=== PATIENT | male | born 1970 | race African-American/Black ===

== ENCOUNTER 2016-11-30 21:27 | Inpatient (IN) | payer OTHER ==
--- NOTE | ~2016-11-30 | CR4 ---
[facility] A Service of [facility] RADIOLOGY TEXT RESULTS PATIENT: MARIELA LANCE LOCATION: [facility] 341- : [birth year] UNIT #: [id number] AGE: [address]: Christofer Gambino MD SEX: M ORDER DR: [id number] [id number] [facility]. [place], [place] [address] [id number] I MR#: [id number] Acc #: [id number] NAME: MARIELA LANCE : 1970 SEX: M STUDY DATE/TIME: 12/04/2016 19:02 UNIT: [address] ROOM: [facility] STUDY DESCRIPTION: CR Abdomen Flat Upright or Dec Attending Physician: Christofer Gambino M.D. Ordering Physician: Damian Enriquez M.D. Primary Care Physician: No Primary Care Physician MEDICAL IMAGING REPORT This report is preliminary unless electronic signature is present EXAM Abdomen flat and upright HISTORY Nausea, vomiting for days. FINDINGS Flat upright views of the abdomen demonstrate moderate dilatation of gas and fluid filled small bowel in the mid to upper abdomen with air-fluid levels on the upright view. No colonic dilatation. There is gas in nondistended colon and rectum. No free air. Small bowel measures up to 4.6 cm in diameter in the upper abdomen. NG tube tip in the proximal stomach in the left upper quadrant. IMPRESSION Gaseous distension of small bowel in the mid upper abdomen measuring up to 4.6 cm in diameter with air-fluid levels suggesting partial small bowel obstruction versus small bowel ileus. Short-term radiographic follow up is recommended. No free air. Dictated by... Devyn Torres M.D. THIS IS AN ELECTRONICALLY VERIFIED REPORT Devyn Torres M.D. at 12/05/2016 5:14 PM ACE/rupert TD: 12/05/2016 01:07 JOB #: [id number] [facility] A Service [facility] RADIOLOGY TEXT RESULTS PATIENT: MARIELA LANCE LOCATION: [facility] 341-01 : [birth year] UNIT #: [id number] AGE: [address]: Christofer Gambino MD SEX: M ORDER DR: MEDICAL IMAGING REPORT Page 1 of 1 COPY
--- NOTE | ~2016-11-30 | XA166 ---
[facility] A Service of [facility] & [facility] RADIOLOGY TEXT RESULTS PATIENT: MARIELA LANCE LOCATION: [facility] 341-01 : [birth year] UNIT #: [id number] AGE: [address]: Christofer Gambino MD SEX: M ORDER DR: [id number] [id number] [facility]. [place], [place] [address] [id number] I MR#: [id number] Acc #: [id number] NAME: MARIELA LANCE. : 1970 SEX: M STUDY DATE/TIME: 12/05/2016 10:11 UNIT: C3A [facility] ROOM: 341 STUDY DESCRIPTION: XA PICC Line Placement WO Port Attending Physician: Christofer Gambino M.D. Ordering Physician: Sindhu Contreras M.D. Primary Care Physician: No Primary Care Physician MEDICAL IMAGING REPORT This report is preliminary unless electronic signature is present EXAM Right-sided PICC line placement. INDICATION Need for IV access in a patient with a history of pancreatitis and requires access for TPN. 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 Informed consent was obtained, and prior to initiating the procedure a formal timeout procedure was performed. PROCEDURE Using full standard sterile barrier technique, including caps, gowns, gloves, masks, as well as sterile skin preparation and standard sterile draping, the right arm was prepped and draped in the usual fashion, and real-time sterile ultrasound guidance was used to localize an arm vein and to confirm vessel patency. A hard copy ultrasound image was recorded. After local anesthesia with 1% Xylocaine, the vein was punctured using real-time sterile ultrasound guidance, and an 0.018 guidewire was advanced into the superior vena cava, using fluoroscopic guidance. A 5-Cuban dual-lumen PICC was then measured and deployed with the tip positioned in the superior vena cava. The position of the line was documented with a radiographic image. The line was secured in place with an adhesive dressing and an antibiotic patch was applied. Total fluoro time was 0.1 minutes. AK was 1 mGy. IMPRESSION Successful placement of a 5-Cuban dual-lumen PowerPICC via the arm under ultrasound and fluoroscopic guidance. The tip of the PICC is in good position in the superior vena cava. [facility] A Service of [facility] & [facility] RADIOLOGY TEXT RESULTS PATIENT: MARIELA LANCE LOCATION: [facility] 341-01 : [birth year] UNIT #: [id number] AGE: [address]: Christofer Gambino MD SEX: M ORDER DR: Dictated by... Jolly William M.D. THIS IS AN ELECTRONICALLY VERIFIED REPORT Jolly William M.D. at 12/06/2016 5:21 PM AFF/hussein TD: 12/06/2016 09:19 JOB #: [id number] MEDICAL IMAGING REPORT Page 1 of 1 COPY
--- NOTE | ~2016-11-30 | CT4 ---
[facility] A Service of [facility] & [facility] RADIOLOGY TEXT RESULTS PATIENT: MARIELA LANCE LOCATION: [facility] 341- : [birth year] UNIT #: [id number] AGE: [address]: Christofer Gambino MD SEX: M ORDER DR: [id number] [facility] [address] [facility]. [place], [place] [address] [id number] I MR#: [id number] Acc #: [id number] NAME: MARIELA LANCE. : 1970 SEX: M STUDY DATE/TIME: 12/06/2016 12:16 UNIT: [address] ROOM: 341 STUDY DESCRIPTION: CT Abd and Pelv Wo Cont Attending Physician: Christofer Gambino M.D. Ordering Physician: Christofer Gambino M.D. Primary Care Physician: No Primary Care Physician MEDICAL IMAGING REPORT This report is preliminary unless electronic signature is present EXAM CT of the abdomen and pelvis without contrast. INDICATION Abdominal pain. Patient has a history of pancreatitis. He was diagnosed with this on December 01, 2016. TECHNIQUE Axial CT images were obtained from the dome of the diaphragm through the symphysis pubis following the administration of oral contrast only. This CT exam was performed with one or more of the following radiation dose reduction techniques: automatic exposure control, adjustment of mA and/or kV according to patient size, and iterative reconstruction. FINDINGS Images through the lung bases demonstrate some bibasilar atelectasis, left greater than right. This has worsened slightly when compared to the prior examination. Nasogastric tube extends into the body of the stomach. Liver contains a low-attenuation lesion which may reflect a cyst. There is a small amount of ascites within the abdomen, and also within the pelvis. The patient's pancreas is enlarged with extensive peripancreatic stranding. The degree of stranding has worsened when compared to the prior CT. There is peripancreatic edema without discrete organized collection noted. The presence or absence of pancreatic necrosis cannot be assessed on the basis of this study due to the lack of intravenous contrast material. Patient's second portion of the duodenum is very thick-walled. Likely secondary to adjacent inflammation within the pancreas, however, process is not resulting in obstruction. Some additional stranding is seen around the left adrenal gland again felt to represent some secondary involvement. The right kidney appears normal. Patient has a left renal cyst. The urinary bladder and prostate gland are within normal limits. There is small bilateral fat containing inguinal hernias. Patient does have colonic diverticulosis without any evidence of STS. [facility] A Service of [facility] RADIOLOGY TEXT RESULTS PATIENT: MARIELA LANCE LOCATION: [facility] 341-01 : [birth year] UNIT #: [id number] AGE: [address]: Christofer Gambino MD SEX: M ORDER DR: diverticulitis. There are dilated loops of small bowel which are seen within the left upper quadrant and I wonder if this could reflect some localized ileus related to the patient's pancreatitis. The appendix is visualized and is within normal limits. Review of bony windows does not demonstrate any aggressive osseous abnormalities. IMPRESSION 1. Enlargement of the pancreas as well as extensive peripancreatic soft tissue stranding has significantly worsened when compared to the prior study. There is also increasing fluid suspected around the pancreas, although, no discrete organized peripancreatic collections are identified. The presence or absence of pancreatic necrosis cannot be assessed on the basis of this unenhanced study. There is secondary involvement of the duodenum and probably also the left adrenal gland. While the patient does not appear frankly obstructed, I do think there is a localized ileus involving the proximal small bowel, secondary to the patient's pancreatitis. 2. This patient does have a small amount of ascites. 3. The appendix is visualized and is within normal limits. 4. Colonic diverticulosis without evidence of diverticulitis. Please see the body of the report for any other additional incidental findings. Dictated by... Jolly William M.D. THIS IS AN ELECTRONICALLY VERIFIED REPORT Jolly William M.D. at 12/06/2016 5:23 PM AFF/wayne TD: 12/06/2016 15:25 JOB #: [id number] MEDICAL IMAGING REPORT Page 1 of 1 COPY
--- NOTE | ~2016-11-30 | FU ---
[facility] Nutrition Therapy DATE: 12/11/16 Patient: MARIELA LANCE Physician: DAYANA Address: [address] [place] [address] Room/Bed: [address] [place] [address], Zip: [place] [address] Admit Date: 12/01/16 Date of : [birth year] Height: 5 8 Weight: 168 76.6 NUTRITION MONITORING/FOLLOW-UP: Reason: TPN f/u Anthropometrics: Wt 12/11: 76.6 kg Labs: Na+ 131 Cl- 98 Gluc 223 BUN 7 Ca++ 7.9 Alb 2.2 AST 77 ALT 59 CRP 16.7 Meds: TPN @ 75 mL/hr, intralipids q 72 hrs, therapeutic formula, novlog, protonix, zofran, MgSO4, KCl I&O's: 1545/2735, last BM 12/10, NG to LWS Skin: Puncture to procedure site left knee Edema: Generalized left knee Estimated Nutrition Needs: 3286-5046 kcals (30-35 kcals/kg) 90-113 grams protein (1.2-1.5 grams/kg) Diet: NPO except ice chips Assessment: Chart reviewed, events noted. Today is day 7 of TPN, which was increased to 75 mL/hr today (goal 85 mL/hr). It appears that the pt was placed on a clear liquid diet for one day on 12/08, then ordered to be NPO again on 12/09. Ileus noted, and the pt's NG is to LWS at this time per RN report. Blood glucose levels remain elevated. RD will provide diet education when the pt's diet advances. Please see recommendations below. Dx: Inadequate protein-energy intake RT pancreatitis, ileus AEB NPO status, -# weight loss- ACTIVE Intervention: 1. TPN 2. Advance to clear liquid diet once medically feasible Monitoring, Evaluation and Goals: 1. TPN; provide at least 80% of the pt's estimated needs- MET/ IN PROGRESS 2. Improve labs; glucose- not met, electrolytes (MET), trig (NOT UPDATED), amylase (NOT UPDATED), Lipase (NOT UPDATED) 3. Oral intake- NOT APPROPRIATE, PT IS NOW NPO 4. GI; promote regular GI function (NOT MET) [facility] DATE: 12/11/16 Patient: MARIELA LANCE Physician: DAYANA Address: [address] [place] [address] Room/Bed: [address] [place] [address], Zip: [place] [address] Admit Date: 12/01/16 Date of : [birth year] Height: 5 8 Weight: 168 76.6 5. Weight; prevent weight loss (IN PROGRESS, +1.8 KG SINCE LAST ASSESSMENT) Recommendations: 1. Increase TPN to goal of 85 mL/hr as deemed appropriate per pharmacy dosing. 2. Optimize the pt's insulin regimen noting elevated blood glucose levels. 3. Once the pt's ileus is resolved, recommend advancing to a clear liquid diet + Ensure Clear TID as tolerated. If the pt is able to tolerate clear liquids, advance to a low fat/full liquid diet as tolerated. RD will follow up to order appropriate supplements. 4. If the pt is continually unable to take nutrition PO, consider obtaining short-term enteral access and attempting enteral nutritition with Vital 1.5. RD will follow up to monitor appropriateness of enteral nutrition. Status: Pt is at moderate-severe nutritional risk. RD will continue to follow closely. Respectfully, TAMIKA MARIN RD, LD Food and Nutritional Services [facility] cc: client file
--- NOTE | ~2016-11-30 | OR ---
Unit #: [id number] #: [id number] Patient: MARIELA VILLASENOR [id number] [address] [address] [id number] I MR#: [id number] NAME: MARIELA VILLASENOR. ROOM: 341 Date of Procedure: 12/07/2016 Admission Date: 12/01/2016 Surgeon: Osiel Crowley M.D. : 1970 Attending Physician: Christofer Gambino M.D. Primary Care Physician: Yanet Primary Care Physician PROCEDURE OPERATIVE NOTE PREOPERATIVE DIAGNOSIS Gross hematuria. POSTOPERATIVE DIAGNOSIS Gross hematuria. PROCEDURES PERFORMED Local cystoscopy. ANESTHESIA Local. INDICATION FOR PROCEDURE Ms. Villasenor is a pleasant 46-year-old gentleman with gross hematuria. This has resolved. CT revealed negative upper tracks. The risks, benefits and alternatives, including bleeding, infection, damage to adjacent structures, need for further surgery, as well as risks of anesthesia, were explained to the patient. Informed consent was obtained. He wished to proceed. DESCRIPTION OF PROCEDURE The patient was placed in the supine position. His genitalia were prepped and draped in the usual sterile fashion. A Uro-jet was passed. I passed a flexible cystoscope. His entire urethra was normal. His prostate exhibited mild bilobar hyperplasia, and the bladder had no tumors, stones or masses. I removed the cystoscope. I allowed the patient to void. The patient tolerated the procedure well without complications. Dictated by... Marques Ward/shefali TD: 12/07/2016 11:17 JOB #: [id number] Unit #: [id number] #: [id number] Patient: MARIELA VILLASENOR PROCEDURE OPERATIVE NOTE Page 1 of 1 X Osiel Crowley MD X PROCEDURE OPERATIVE NOTE
--- NOTE | ~2016-11-30 | FU ---
[facility] Nutrition Therapy DATE: 12/08/16 Patient: MARIELA LANCE Physician: DAYANA Address: [address] [place] [address] Room/Bed: [address] [place] [address], Zip: [place] [address] Admit Date: 12/01/16 Date of : [birth year] Height: 5 8 Weight: 164 74.8 NUTRITION MONITORING/FOLLOW-UP: Reason: TPN FOLLOW UP Anthropometrics: Ht: 68" Adm wt: 75.2 kg BMI: 25.2 Wt 12/08: 74.8 kg Labs: Na+ 133 Gluc 270 BUN 7 Creat 0.5 Ca++ 7.6 Alb 2.2 AST 47 Phos 2.2 Accuchecks 272 Meds: TPN @ 70 mL/hr, therapeutic formula, novolog, protonix, D5%, MgSO4, KCl, zofran I&O's: 1762/3051, last BM 12/08, NGT d/c'd Skin: No breakdown noted Edema: None noted Estimated Nutrition Needs: 9809-2445 kcals (30-35 kcals/ kg) 90-113 grams protein (1.2-1.5 grams/kg) Assessment: Chart reviewed, events noted. NG tube has been discontinued, and the pt had a BM (noted yesterday and today). TPN running at 70 mL/hr, to increase to goal rate when electrolytes and glucose levels improve per pharmacy note. Pt is currently ordered a regular diet and received breakfast this AM; however, there is no written MD order for diet that RD could locate. RN reports that MD verbalized diet advancement last night, and that the pt did not consume any of his breakfast (even though he did receive a tray). RD suggested the pt is started on clear liquids, and advanced to low fat diet as tolerated due to pancreatitis. RN called MD to clarify this. RD spoke with the pt at bedside. Pt denies having any abdominal pain at this time. His abdomen does appear to be distended per RD observation. Pt is agreeable to Ensure clear TID once diet is clarified. Pt has a fair appetite. Please see recommendations below. Dx: Inadequate protein-energy intake RT pancreatitis AEB NPO, 10-15# weight loss reported by the pt- ACTIVE Intervention: 1. TPN 2. Advance to clear liquid diet [facility] Nutrition Therapy DATE: 12/08/16 Patient: MARIELA Springer NATLAIO Physician: DAYANA Address: [address] [place] [address] Room/Bed: [address] [place] [address], Zip: [place] [address] Admit Date: 12/01/16 Date of : [birth year] Height: 5 8 Weight: 164 74.8 Monitoring, Evaluation and Goals: 1. TPN; provide at least 80% of the pt's estimated needs- (IN PROGRESS) 2. Improve labs; Glucose-NOT MET, electrolytes (NOT MET), triglycerides (NOT UPDATED), amylase (NOT UPDATED), lipase (NOT UPDATED) 3. Oral intake; clarify diet, tolerate 50% of meals if diet ordered by MD-(NEW) 4. GI; promote regular GI function (IN PROGRESS- BM NOTED) 5. Weight; prevent weight loss- (NOT MET) Recommendations: 1. Continue TPN, increasing to goal rate of 85 mL/hr as deemed appropriate based on pharmacy orders (monitoring labs, glucose). Once the pt is consuming greater than 50% of meals, gradually wean and discontinue TPN. 2. Recommend advancing the pt to a clear liquid diet to begin with. If the pt tolerates clear liquids, advance to full liquid diet. If the pt is able to tolerate full liquids, advance to a low fat diet (d/t pancreatitis). RD will order supplements as appropriate. 3. Ensure clear TID once advanced to a clear liquid diet. Status: Pt is at moderate-severe nutritional risk. RD will continue to follow closely. Respectfully, TAMIKA MARIN RD, LD Food and Nutritional Services [facility] cc: client file
--- NOTE | ~2016-11-30 | CT2 ---
[facility] A Service of [facility] RADIOLOGY TEXT RESULTS PATIENT: MARIELA LANCE LOCATION: [facility] 341-01 : [birth year] UNIT #: [id number] AGE: [address]: Christofer Gambino MD SEX: M ORDER DR: [id number] [facility] [address] [facility]. [place], [place] [address] [id number] I MR#: [id number] Acc #: [id number] NAME: MARIELA LANCE. : 1970 SEX: M STUDY DATE/TIME: 12/01/2016 0:02 UNIT: CEDOF ROOM: 02472 STUDY DESCRIPTION: CT Abd and Pelv W Cont Attending Physician: Sindhu Contreras M.D. Ordering Physician: Pa Hagan M.D. Primary Care Physician: Primary Care Physician No MEDICAL IMAGING REPORT This report is preliminary unless electronic signature is present EXAM CT abdomen and pelvis with contrast date: 12/01/2016 HISTORY Abdominal pain with vomiting, onset symptoms of 1700 today. COMPARISON Abdominal ultrasound 10/31/2010. No previous CT abdomen and pelvis at this and diffusion for comparison. PROCEDURE 5 mm axial images from the lung bases through lesser trochanters after intravenous contrast administration. Sagittal and coronal reformatted images were obtained. Enteric contrast was not administered. This CT exam was performed with one or more of the following radiation dose reduction techniques: automatic exposure control, adjustment of mA and/or kV according to patient size, and iterative reconstruction. FINDINGS Abdomen findings: There is abnormal thickening and diminished enhancement or edema involving the pancreatic head, neck, downstream body and uncinate process, thought to represent changes of acute pancreatitis. Free fluid is seen surrounding the liver, extending along the anterior pararenal fascial planes, and in the right pericolic gutter into the pelvis. No well-defined drainable fluid collection or pseudocyst is seen. There is some mild thickening and enhancement of the second and third duodenal segments, likely representing a reactive secondary duodenitis. Geographic region of low-density in hepatic dome measures 2.1 x 1.2 cm. It is nonspecific may represent focal area of geographic hepatic steatosis. Benign appearing 1.2 cm cyst is seen more inferolaterally in STS. [facility] A Service of [facility] RADIOLOGY TEXT RESULTS PATIENT: MARIELA LANCE LOCATION: A 341-01 : [birth year] UNIT #: [id number] AGE: [address]: Christofer Gambino MD SEX: M ORDER DR: the right hepatic lobe. The gallbladder, spleen, adrenals and right kidney are normal. A cyst is seen within left upper renal pole measuring 2.6 cm. Mild emphysematous changes are present within the lung bases. There is some incomplete opacification within the splenic vein immediately adjacent to the pancreas, may represent partial incomplete luminal thrombus. The appendix is normal. Pelvis findings: Urinary bladder, prostate and rectum are within normal limits. No acute osseous abnormalities are identified. IMPRESSION 1. Findings most consistent with the appearance of acute pancreatitis involving the pancreatic head, neck, and downstream body. 2. There is irregular incomplete opacification of the splenic vein immediately adjacent to the inflamed pancreas suggesting partial and complete splenic vein thrombus. 3. Free fluid is seen within the abdomen as described above. No well-defined pseudocyst or drainable fluid collection is seen at this time. 4. Suspected secondary reactive duodenitis changes of the second and third duodenal segments. 5. 2.1 cm geographic region of low-density hepatic dome. Benign etiology such as focal steatosis is favored. Consider MRI abdomen without and with contrast hepatic imaging protocol followup to further evaluate. Alternatively, correlation with previous outside CT abdomen imaging studies would be recommended if available to determine stability. 6. Mild emphysema. 7. Hepatic cyst. Left renal cyst. Dictated by... Vianca Hays M.D. THIS IS AN ELECTRONICALLY VERIFIED REPORT Vianca Hays M.D. at 12/06/2016 4:11 PM Sofi TD: 12/01/2016 07:07 JOB #: [id number] MEDICAL IMAGING REPORT Page 1 of 1 COPY
--- NOTE | ~2016-11-30 | TOC ---
Unit #: [id number] #: [id number] Patient: MARIELA LANCE [id number] [address] [place], [place] [address] [id number] I MR#: [id number] NAME: MARIELA LANCE. ROOM: 341 Age: 46 Sex: M Admission Date: 12/01/2016 : 1970 Attending Physician: Christofer Gambino M.D. Primary Care Physician: Yanet Primary Care Physician TRANSFER OF CARE SUMMARY ADMITTING DIAGNOSES 1. Pancreatitis. 2. Small bowel obstruction. 3. Ileus. 4. Low-grade fevers. 5. Possible septic arthritis of the left knee. 6. Hematuria. CONSULTANTS 1. Dr. Damian Enriquez. 2. Dr. Salinas. PROCEDURES DONE 1. EGD. 2. Cystoscopy. HISTORY OF PRESENT ILLNESS The patient is a 46-year-old gentleman with a past medical history of hypertension, history of previous stroke, alcohol abuse. Was admitted with abdominal pain on the with concern for acute pancreatitis. In the hospital course he was kept NPO, started on IV fluids, TPN. He had an EGD, which showed normal esophagus, hiatal hernia and esophageal ring. No fundic varices. About 1.5 liters of fluid were aspirated from the patient's stomach and small bowel. For possible ileus, and NG tube was placed. Subsequently, his abdominal distention has improve. He was started on Unasyn (1) . He is still spiking low-grade fevers. Today he is complaining of left knee pain where he had surgery at [facility] a year ago for knee surgery. We are trying to get records from [facility] about the knee surgery. For a consent for septic arthritis, we are consulting orthopedic surgery to evaluate him. We are also starting him on vancomycin and Rocephin and stopping Unasyn. For hematuria, he was evaluated by urology. He had a cystoscopy, which showed benign prostatic hypertrophy. No masses. He is clinically doing better. After ortho evaluation, probably in a day or day or two, he may be discharged home. Kindly note a final discharge summary will be dictated by me or my colleagues at the time of actual discharge. Dictated by... Christofer Gambino M.D. PS/db Unit #: [id number] #: [id number] Patient: GEGE LANCEALEJANDRO Springer TD: 12/11/2016 09:10 JOB #: [id number] TRANSFER OF CARE SUMMARY Page 1 of 1 X X TRANSFER OF CARE SUMMARY
--- NOTE | ~2016-11-30 | US67 ---
[facility] A Service of [facility] RADIOLOGY TEXT RESULTS PATIENT: MARIELA LANCE LOCATION: [facility] : [birth year] UNIT #: [id number] AGE: [address]: Christofer Gambino MD SEX: M ORDER DR: [id number] [place] [id number] [facility]. [place], [place] [address] [id number] I MR#: [id number] Acc #: [id number] NAME: MARIELA LANCE. : 1970 SEX: M STUDY DATE/TIME: 12/11/2016 16:17 UNIT: [address] ROOM: [facility] STUDY DESCRIPTION: US Gallbladder Attending Physician: Christofer Gambino M.D. Ordering Physician: Adarsh Dubois M.D. MEDICAL IMAGING REPORT This report is preliminary unless electronic signature is present EXAM Gallbladder ultrasound HISTORY Pain. This has been present since November 30, 2016. Patient has a known history of pancreatitis. TECHNIQUE Sanchez-scale and color Doppler sonographic images were obtained through the right upper quadrant. FINDINGS Pancreas cannot be assessed on these images due to overlying bowel gas but was recently assessed on a CT scan performed this morning. Liver is enlarged measuring up to 17 cm in craniocaudal dimensions but is relatively homogeneous in echotexture. No focal hepatic lesions are seen. Right kidney is normal in appearance. No solid or cystic renal masses are seen. There is no hydronephrosis. No stones or sludge are seen within the gallbladder. There is no gallbladder wall thickening or pericholecystic fluid. IMPRESSION 1. Hepatomegaly. 2. Please note, pancreas cannot be seen on these images due to overlying bowel gas but was assessed on a CT scan performed earlier today. Dictated by... Jolly William M.D. THIS IS AN ELECTRONICALLY VERIFIED REPORT [facility] A Service of [facility] RADIOLOGY TEXT RESULTS PATIENT: MARIELA LANCE LOCATION: [facility] : [birth year] UNIT #: [id number] AGE: [address]: Christofer Gambino MD SEX: M ORDER DR: Jolly William M.D. at 12/12/2016 4:46 PM AFF/pcl TD: 12/11/2016 22:10 JOB #: [id number] MEDICAL IMAGING REPORT Page 1 of 1 COPY
--- NOTE | ~2016-11-30 | CR4 ---
[facility] A Service of [facility] & [facility] RADIOLOGY TEXT RESULTS PATIENT: MARIELA LANCE LOCATION: [facility] 341- : [birth year] UNIT #: [id number] AGE: [address]: Christofer Gambino MD SEX: M ORDER DR: [id number] [facility] [address] [facility]. [place], [place] [address] [id number] I MR#: [id number] Acc #: [id number] NAME: MARIELA LANCE : 1970 SEX: M STUDY DATE/TIME: 12/09/2016 11:54 UNIT: [address] ROOM: [facility] STUDY DESCRIPTION: CR Abdomen Flat Upright or Dec Attending Physician: Christofer Gambino M.D. Ordering Physician: Kenneth Hawk M.D. Primary Care Physician: No Primary Care Physician MEDICAL IMAGING REPORT This report is preliminary unless electronic signature is present EXAM Flat and upright abdomen. INDICATIONS Abdominal pain and bloating. Increasing. COMPARISON Comparison with 12/04/2016. FINDINGS There are dilated gas-filled loops of small bowel which compared with the prior study have increased within the mid and lower abdomen. Gas within the stomach. Overall findings suggest worsening of small bowel obstruction. A PICC line remains in place. IMPRESSION Increased gas-filled dilated loops of small bowel suggesting worsening small bowel obstruction. Dictated by... Kali Yun M.D. THIS IS AN ELECTRONICALLY VERIFIED REPORT Kali Yun M.D. at 12/10/2016 3:48 PM KHURRAM/wayne TD: 12/09/2016 23:04 JOB #: [id number] MEDICAL IMAGING REPORT Page 1 of 1 COPY
--- NOTE | ~2016-11-30 | OR ---
Unit #: [id number] #: [id number] Patient: MARIELA VILLASENOR [id number] [address] [place], [place] [address] [id number] I MR#: [id number] NAME: MARIELA VILLASENOR. ROOM: [facility] Date of Procedure: 12/10/2016 Admission Date: 12/01/2016 Surgeon: Carlos Alberto Burger M.D. : 1970 Attending Physician: Christofer Gambino M.D. Primary Care Physician: Primary Care Physician No OPERATIVE REPORT PREOPERATIVE DIAGNOSIS Left septic knee arthritis. POSTOPERATIVE DIAGNOSIS Left septic knee arthritis. PROCEDURE PERFORMED Left knee arthrotomy with incision and drainage. 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 ANESTHESIA General endotracheal. COMPLICATIONS None. SPECIMENS Culture swabs sent from the left knee. DRAINS Medium Hemovac. SURGICAL IMPLANTS None. INDICATION FOR PROCEDURE Mr. Villasenor is a 46-year-old male with history of left septic knee arthritis. The patient developed large left knee effusion and elevated white count along with low-grade fevers over the past 2 days. He had been admitted for acute pancreatitis. Aspiration knee performed. Gram stain was negative, but the patient was on antibiotics. 99% neutrophils. Based on these findings, it was felt irrigating the knee would help. Risks, benefits, alternatives were discussed with the patient. Risks include, but not limited to infection, bleeding, nerve injury, blood clots, risks associated with anesthesia, need for further surgery, and possibly . DESCRIPTION OF PROCEDURE On 12/10/2016, the patient was seen in the preoperative holding area, where his surgical site was marked. H and P and consent updated. The patient was on scheduled antibiotics. The patient was taken to the Unit #: [id number] #: [id number] Patient: MARIELA VILLASENOR operating room and provided general anesthesia. The left lower extremity was prepped and draped in typical sterile fashion. Time-out performed confirming the correct surgical site and procedure. Next, a longitudinal incision was made through the old scar right along the medial patella. A medial parapatellar arthrotomy performed. Large fusion noted. Purulent fluid noted. Culture swabs were sent. The knee was thoroughly irrigated with 3000 mL of normal saline containing bacitracin. A medium Hemovac drain was placed at the superolateral aspect of the thigh. Deep tissue closed with 0 Vicryl followed by 2-0 Vicryl for subcutaneous tissues and deepthi for skin. Xeroform, 4x4s, ABD pad, cast padding, and Campbell bandage were placed. The patient was subsequently awakened from general anesthesia in stable condition and taken to the PACU postoperatively. POSTOPERATIVE PLAN The patient will return to his hospital room. He will continue his antibiotics. We will check cultures. No complications encountered during this procedure. Dictated by... Carlos Alberto Burger M.D. MEAGHAN/rosanne TD: 12/10/2016 09:30 JOB #: [id number] OPERATIVE REPORT Page 1 of 1 X X PROCEDURE OPERATIVE NOTE
--- NOTE | ~2016-11-30 | OR ---
Unit #: [id number] #: [id number] Patient: MARIELA LANCE [id number] [address] [place], [place] [address] [id number] I MR#: [id number] NAME: MARIELA LANCE. ROOM: [facility] Date of Procedure: 12/04/2016 Admission Date: 12/01/2016 Surgeon: Damian Enriquez M.D. : 1970 Attending Physician: Christofer Gambino M.D. OPERATIVE REPORT PROCEDURE Esophagogastroduodenoscopy to descending duodenum. INDICATIONS FOR PROCEDURE The patient with recurrent hematemesis, history of acute pancreatitis, being treated. MEDICATIONS Monitored anesthesia. POSTOPERATIVE FINDINGS 1. Normal esophagus, but for hiatal hernia and esophageal ring. No varices were seen. 2. No fundic varices. 3. Gastric mucosa appears normal. No ulcer disease was seen. 4. Normal duodenum and distal duodenum. 5. Over 1.5 L of green fluid was aspirated out of the patient's stomach and small bowel. It suggests that he had significant ileus going on. PLAN NG tube to low wall suction, KUB, watch H and H. continue current treatment otherwise. DESCRIPTION OF PROCEDURE The patient was explained of the procedure, risks, and benefits along with risks and benefits of anesthesia, was brought to the endoscopy room. Propofol anesthesia was given. Bite block was placed. The scope was passed down the mouth into esophagus, stomach, duodenum, and distal duodenum. Findings have been described above. Gently, the scope was pulled out. He tolerated it well. No major complications were seen. Dictated by... Marques Rock/rosanne TD: 12/05/2016 05:23 JOB #: [id number] Unit #: [id number] #: [id number] Patient: MARIELA LANCE OPERATIVE REPORT Page 1 of 1 X Damian Enriquez MD PROCEDURE OPERATIVE NOTE
--- NOTE | ~2016-11-30 | CT2 ---
[facility] A Service of [facility] & [facility] RADIOLOGY TEXT RESULTS PATIENT: MARIELA LANCE LOCATION: [facility] 341-01 : [birth year] UNIT #: [id number] AGE: [address]: Christofer Gambino MD SEX: M ORDER DR: [id number] [facility] [address] [place], [place] [address] [id number] I MR#: [id number] Acc #: [id number] NAME: MARIELA LANCE. : 1970 SEX: M STUDY DATE/TIME: 12/11/2016 01:17 UNIT: A U ROOM: 341 STUDY DESCRIPTION: CT Abd and Pelv W Cont Attending Physician: Christofer Gambino M.D. Ordering Physician: Christofer Gambino M.D. Primary Care Physician: Primary Care Physician No MEDICAL IMAGING REPORT This report is preliminary unless electronic signature is present EXAM CT abdomen and pelvis 12/11/2016 01:17 INDICATION Mid abdominal pain since 11/30/2016. Pancreatitis. Small bowel obstruction for 3 days. TECHNIQUE Axial images were obtained through the abdomen and pelvis following IV contrast administration. Multiplanar reformats were obtained. Comparison made with 12/06/2016. This CT examination was performed with one or more of the following radiation dose reduction techniques: automatic exposure control, adjustment of mA and/or kV according to patient size, and iterative reconstruction. FINDINGS ABDOMEN: Minimal atelectasis noted in the lung bases. Cyst in the posterior right hepatic lobe is unchanged. Left renal cyst also unchanged. Both kidneys remain nonobstructed. Again seen are changes of acute pancreatitis with peripancreatic fluid extending out into the abdomen. There is no enhancement of the proximal to mid pancreatic body as well as a portion of the pancreatic head. These areas previously showed decreased enhancement on 12/01/2016 and this is presumably secondary to necrosis. No loculated drainable fluid collections are seen. The gallbladder is within normal limits. There is some thickening of the second portion of the duodenum which is probably some reactive inflammation. NG tube is decompressing the stomach. There are some dilated small bowel loops predominantly on the left side of the abdomen which are probably not appreciably changed from a prior study and likely reflect an ileus. Colon is relatively decompressed. The degree of fluid and stranding around the pancreas has progressively worsened. PELVIS: There is sigmoid diverticulosis without evidence of STS. [facility] A Service of [facility] RADIOLOGY TEXT RESULTS PATIENT: MARIELA LANCE LOCATION: [facility] 341-01 : [birth year] UNIT #: [id number] AGE: [address]: Christofer Gambino MD SEX: M ORDER DR: diverticulitis. The appendix remains normal. Urinary bladder is within normal limits. No significant free fluid in the pelvis. IMPRESSION 1. Progressive inflammatory stranding in the lesser sac around the pancreas compatible with the patient's known pancreatitis. 2. Non-enhancement of the proximal to mid pancreatic body as well as portions of the pancreatic head compatible with pancreatic necrosis. The tail and uncinate process do appear to be enhancing normally. 3. No loculated or organized fluid collections are seen at this time in the abdomen or pelvis. 4. There are some dilated small bowel loops relatively stable from prior which probably reflect a generalized ileus. 5. Presumed secondary inflammatory changes involving the second portion of the duodenum. 6. Normal appendix. Dictated by... Beck Giron Jr., M.D. THIS IS AN ELECTRONICALLY VERIFIED REPORT Beck Giron Jr., M.D. at 12/11/2016 5:19 PM JANAE/benito TD: 12/11/2016 10:40 JOB #: [id number] MEDICAL IMAGING REPORT Page 1 of 1 COPY
--- NOTE | ~2016-11-30 | HP ---
Unit #: [id number] #: [id number] Patient: MARIELA LANCE [id number] [address] [place], [place] [address] [id number] I MR#: [id number] NAME: MARIELA LANCE. ROOM: 33648 Age: 46 Sex: M Admission Date: 12/01/2016 : 1970 Attending Physician: Sindhu Contreras M.D. Primary Care Physician: No Primary Care Physician HISTORY AND PHYSICAL SEE ADDENDUM CHIEF COMPLAINT Acute pancreatitis. HISTORY This pleasant, 46-year-old male with hypertension, previous CVA, and previous history of alcohol abuse is admitted for acute pancreatitis. At lunch yesterday, the patient developed fairly severe generalized abdominal pain with nonbloody nausea and vomiting after eating a sandwich and drinking Vicente's hard lemonade. He presented to this emergency department late last evening with labs and CT scan most consistent with acute pancreatitis. He was also noted to have a partial to complete splenic vein thrombosis near the pancreatitis and a focal abnormality of the liver, which could be secondary to focal steatosis versus other. Suspected secondary changes of duodenitis are also noted near the pancreas. In the ER, he was bolused with 2 liters of saline and given morphine, Zofran, Dilaudid, and Protonix. He still is in considerable pain and I have asked that further Dilaudid be given. Patient denies previous history of pancreatitis. He previously drank heavily, but now only drinks on the weekends and during ballgames, generally Vicente's hard lemonade. PAST MEDICAL HISTORY 1. Admission to [facility] in July with a CVA. Will obtain records. 2. Hypertension. 3. GERD. 4. Previous history of thrombocytopenia thought to be related to alcohol abuse. 5. Septic left knee requiring surgery. ALLERGIES None. HOME MEDICATIONS Uncertain. I see that aspirin, Norvasc, diclofenac, Claritin, nebivolol, omeprazole, Phenergan, and Topamax are listed on the ER sheet. Will verify home medicines. FAMILY HISTORY Negative for CAD. Unit #: [id number] #: [id number] Patient: MARIELA LANCE SOCIAL HISTORY The patient lives alone. He does not smoke, stopped smoking in July. Does drink alcohol, but no longer drinks heavily. States that he drinks hard lemonade on the weekend and occasionally during the week. Denied illicit drug use. REVIEW OF SYSTEMS Notable for abdominal pain, nausea, vomiting, CVA, alcohol use, hypertension, and previous left septic knee requiring surgery. All other systems were reviewed and are negative. PHYSICAL EXAMINATION GENERAL APPEARANCE: Very uncomfortable appearing, 46-year-old male. VITAL SIGNS: Temperature 97.9, pulse 82, respirations 30, blood pressure 128/89, and O2 saturation 100% on room air. HEENT: Eyes: PERRLA. Extraocular muscles are intact. Pharynx: Benign. NECK: Supple without adenopathy or thyromegaly. CHEST: Clear. CARDIAC: Normal S1 and S2 without S3, S4, or murmur. ABDOMEN: Bowels sounds are present. Patient has generalized abdominal tenderness, which mainly localizes to the epigastric left upper quadrant. No definite rebound, although there is some guarding. EXTREMITIES: Without edema. Pedal pulses are present. NEUROLOGIC: Patient is awake, alert, and oriented. Cranial nerves are intact. Equal strength throughout. DIAGNOSTIC STUDIES LABORATORY: Hematocrit is 37.3, white blood count 22.6, and platelet count is 462 and 2 bands are noted. SMA-12: Glucose is 236, potassium 3.2, and calcium 8.2. Amylase is 690 and lipase 3000. Alcohol 56. IMAGING: CT scan: Acute pancreatitis. Irregular opacification of the splenic vein representing partial and complete splenic vein thrombosis. Suspected secondary changes of duodenitis. There is a focal 2.1 cm liver lesion, which may be hepatic steatosis, but need to rule out mass. Hepatic and left renal cysts noted. ASSESSMENT 1. Acute pancreatitis possibly related to alcohol use. 2. Prior history of alcohol abuse. 3. 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 4. Abnormal liver lesion, probably benign, but need to rule out hepatocellular CA. 5. Prior CVA, 07/2016. 6. Hypertension. 7. Hyperglycemia. 8. Hypokalemia. PLANS 1. Aggressive IV fluids. Obtain Is and Os. 2. Replace potassium and check magnesium. 3. Proton pump inhibitor. 4. MRI of the liver and check triglyceride level. 5. GI consultation. 6. Obtain prior records. 7. Obtain hemoglobin A1c. Sliding scale insulin. Unit #: [id number] #: [id number] Patient: MARIELA LANCE 8. Will give low-dose heparin without boluses for now pending GI evaluation as well. Dictated by Marques Jeffers/sergio TD: 12/01/2016 05:38 JOB #: [id number] ADDENDUM Will not give heparin drip. Will allow GI to consult in the morning instead. Patient is at a high risk of bleeding at this time if heparin were empirically started. Dictated by Marques Jeffers/sergio TD: 12/01/2016 06:05 JOB #: [id number] HISTORY AND PHYSICAL Page 1 of 1 X Sindhu Contreras MD HISTORY AND PHYSICAL
--- NOTE | ~2016-11-30 | A ---
[facility] DATE: 12/06/16 Patient: MARIELA LANCE Physician: DAYANA Address: [address] [place] [address] Room/Bed: [address] [place] [address], Zip: [place] [address] Admit Date: 12/01/16 Date of : [birth year] Height: 5 8 Weight: 174 79.1 NUTRITIONAL ASSESSMENT: REASON: PT SEEN FOR NPO STATUS X 5 DAYS 46 yo male admitted for acute pancreatitis, abdominal pain, n/v PMH: HTN, CVA, alcohol abuse, GERD, septic left knee injury Anthropometrics: Ht: 68" Wt: 75.2 kg BMI: 25.2 Labs: K+ 3.3 Gluc 171 Creat 0.5 Ca++ 7.5 Alb 2.1 Accuchecks 181-206 HgbA1C 6.2 Prealb 12.1 Trig 221 Meds: Protonix, TPN (25% dextrose) @ 40 mL/hr, D5%, MgSO4, KCl, novolog, zofran I/O & Bowel function: 360/1500, last BM / Skin Integrity: no breakdown noted Edema: Generalized to abdomen Estimated Nutrition Needs: 7570-9440 kcals (30-35 kcals/kg) 90-113 grams protein (1.2-1.5 grams/kg) Diet: NPO Assessment: Chart reviewed, events noted. Pt admitted with abdominal pain, found to have acute pancreatitis with h/o EtOH abuse. Steatosis of the liver questionable. Pt has been NPO for 5 days (since admission) and TPN was started yesterday, currently running at 40 mL/hr, and ordered to be increased to 60 mL/hr today per information in chart. Please note RD recommended goal rate below to meet the pt's estimated protein-calorie needs, which are increased due to pancreatitis. RD spoke with the pt at bedside, who denies any n/v today, and does report ~10-15# weight loss recently. Pt was unsure of specific time frame of weight loss. Pt denied having any questions, RD briefly discussed nutrition options once medically feasible. Dx: Inadequate protein-energy intake RT pancreatitis AEB NPO x 5 days, 10-15# weight loss. Intervention: 1. NPO 2. TPN 3. EN or PO once medically feasible [facility] DATE: 12/06/16 Patient: MARIELA Springer NATALIO Physician: DAYANA Address: [address] [place] [address] Room/Bed: [address] [place] [address], Zip: [place] [address] Admit Date: 12/01/16 Date of : [birth year] Height: 5 8 Weight: 174 79.1 Monitoring, Evaluation and Goals: 1. TPN; provide 80% of the pt's estimated nutrient needs 2. Improve labs; electrolytes, glucose, A1C, trig, amylase, lipase 3. Weight; prevent unintentional weight loss 4. GI; promote regular bowel function Recommendations: 1. If the pt remains on TPN (25% dextrose), gradually increase to goal rate of 85 mL/hr with dosing per pharmacy. This would meet the pt's increased protein-calorie needs by providin kcals dextrose 2142 kcals total 102 grams protein GUR= 4.7 2. Once medically feasible, recommend advancing the pt to a clear liquid diet + Ensure TID. If the pt is able to tolerate clear liquids, advance to full liquid diet as tolerated. Once pt is tolerating full liquids, advance to low fat/ CC diet. 3. If the pt is unable to tolerate PO intake, consider initiating enteral nutrition with Vital 1.5 (semi-elemental formula). RD will follow closely. Pt is at moderate-severe nutritional risk. RD will follow closely. Respectfully, TAMIKA MARIN RD, LD [facility] and Nutrition[facility] Services [facility] cc: client file
--- NOTE | ~2016-11-30 | CO ---
Unit #: [id number] #: [id number] Patient: MARIELA LANEC [id number] [address] [address] [id number] I MR#: [id number] NAME: MARIELA LANCE. ROOM: 341 Age: 46 Sex: M Admission Date: 12/01/2016 : 1970 Attending Physician: Christofer Gambino M.D. Primary Care Physician: No Primary Care Physician CONSULTATION REPORT REASON FOR CONSULTATION GI bleed, portal vein thrombosis. HISTORY OF PRESENTING ILLNESS The patient is a very pleasant 46-year-old male who has a history of alcohol abuse and is currently admitted for acute pancreatitis. Started with generalized abdominal pain and nausea and vomiting on and presented to the emergency department with labs and CT scan most consistent with acute pancreatitis. Workup thus far, including both the CT and MRI, has shown likely necrosing pancreatitis, as well as complete splenic vein thrombosis. He is still having some generalized abdominal pain, nausea and vomiting, which he reports now is bloody. He is also reporting bloody urine. No bowel movement since admission. PAST MEDICAL HISTORY 1. Previous admission to [facility] in July with a CVA. 2. Hypertension. 3. GERD. 4. History of thrombocytopenia. 5. Left knee surgery due to sepsis. ALLERGIES None. HOME MEDICATIONS Aspirin, Crestor, Norvasc, diclofenac, Bystolic, omeprazole, promethazine, Topamax. FAMILY HISTORY Reviewed, noncontributory. SOCIAL HISTORY Patient lives alone. Does not smoke. Does drink socially now. No longer drinks heavily. Denies any illicit drugs. REVIEW OF SYSTEMS A complete 10-point review of systems was completed and negative except as mentioned in the HPI. PHYSICAL EXAMINATION GENERAL: Patient is a pleasant 46-year-old male currently in no acute distress. VITAL SIGNS: Temperature is 98.9, pulse 115, respirations 18, O2 sats 94%, blood pressure 120/87. Unit #: [id number] #: [id number] Patient: MARIELA LANCE HEENT: PERRLA. NECK: Supple. CARDIAC: S1, S2. LUNGS: Clear to auscultation. ABDOMEN: Distended, tight and tender. EXTREMITIES: No edema. NEUROLOGIC: The patient is alert, awake and oriented. DIAGNOSTIC STUDIES IMAGING: MRI abdomen showed acute pancreatitis. Findings suspicious for evolving necrosis of pancreatic head, neck and body. No organized pseudocyst was noted. 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 No organized fluid collection. LABORATORY DATA: Sodium is 130. LFTs from yesterday are 52, 18, AST and ALT respectively; alkaline phosphatase is 35. INR is 1.1. White count is 11.4, which is improved from 17.4 yesterday. Hemoglobin is 9.7, which is down; it was 12 two days ago. Hematocrit is 28.8, platelets are 226. ASSESSMENT AND PLAN 1. Acute pancreatitis with likely necrosis. No drainable fluid collection notable. Will start antibiotics. Continue IV fluids. Would consider surgery consult. May need TPN in the near future. Will check CRP. Would also benefit from flat and upright abdominal x-rays. 2. Anemia, acute blood loss, questionable GI bleed. Will hold Lovenox for now. Consider EGD soon. 3. History of alcohol abuse. 4. Splenic vein thrombosis. Lovenox was started; however, will hold for now secondary to acute blood loss anemia. Thank you for this interesting consult. We will continue to follow. Dictated by... Luli Alarcon A.P.R.N. for Damian Enriquez M.D. JORGE L/shefali TD: 12/05/2016 08:01 JOB #: [id number] CONSULTATION REPORT Page 1 of 1 X X CONSULTATION REPORT
--- NOTE | ~2016-11-30 | CO ---
Unit #: [id number] #: [id number] Patient: MARIELA VILLASENOR [id number] [address] [place], [place] [address] [id number] I MR#: [id number] NAME: MARIELA VILLASENOR ROOM: 341 Age: 46 Sex: M Admission Date: 12/01/2016 : 1970 Attending Physician: Christofer Gambino M.D. Primary Care Physician: Yanet Primary Care Physician Consultation Date: 12/09/2016 CONSULTATION REPORT REASON FOR CONSULTATION Left knee effusion. CHIEF COMPLAINT Left knee pain. HISTORY OF PRESENT ILLNESS Mr. Villasenor is a 46-year-old male known to our orthopedic group with history of left septic knee arthritis, treated by my partner Dr. Wick, at [facility] [place] over the summer of 2015. The patient reports that he has had two days of knee swelling and pain. He has been in the hospital since 12/01/2016 due to acute pancreatitis. The knee had been doing okay until two days ago when it began swelling. The patient has had low grade fevers and elevated white blood cell count. He has been on antibiotics. Orthopedics consulted for evaluation of the knee. The pain is worse with motion, better at rest. She describes a dull ache. She has difficulty walking on it. It does not seem to be improving. PAST MEDICAL HISTORY 1. CVA. 2. Hypertension. 3. GERD. 4. Thrombocytopenia related to alcohol abuse. 5. History of left septic knee arthritis. PAST SURGICAL HISTORY Left knee arthrotomy with I and D. ALLERGIES No known drug allergies. FAMILY HISTORY Noncontributory. SOCIAL HISTORY Lives alone. He does have a history of smoking. He does still drink some alcohol. Denies illicit drug use. CURRENT MEDICATIONS 1. Insulin. 2. Vancomycin. 3. Rocephin. 4. Ativan. 5. Protonix. Unit #: [id number] #: [id number] Patient: MARIELA VILLASENOR 6. Flomax. 7. Topamax. 8. Coreg. REVIEW OF SYSTEMS No other pertinent positives or negatives noted unless mentioned in HPI. PHYSICAL EXAMINATION GENERAL APPEARANCE: The patient is alert and oriented to examination. No acute distress. VITAL SIGNS: Temperature is 97.9 degrees Fahrenheit, pulse 93, respiratory rate 20, blood pressure 128/93, oxygen saturation 99%. HEENT: Head is atraumatic, normocephalic. Extraocular movements intact. Mucous membranes moist. CERVICAL SPINE: Midline with no appreciable JVD. LUNGS: Breathing nonlabored. Chest rise symmetric. PULSE: Regular rate and rhythm. ABDOMEN: Slightly distended but soft. EXTREMITIES: No clubbing, cyanosis or edema of the extremities. Pulses intact in all extremities. No skin lesions. Focal exam of the left lower extremity reveals a large left knee effusion. Tenderness to palpation. Limited motion of the knee. Warmth noted. No erythema. DIAGNOSTIC STUDIES LABORATORY: Glucose 243, white blood cell count 18.8, hemoglobin 8.3, platelets 366. IMAGING: No knee x-rays at this time. ASSESSMENT 46-year-old male with left knee effusion concerning for septic arthritis versus gout. PLAN We will go ahead and aspirate the knee and send it off with stat cultures, Gram-stain, cell count, and crystals. Upon reviewing the records, he does have a history of elevated uric acid. We will order a stat urine acid level. We will also get two view knee x-rays. Depending on labs, we may proceed with left knee I and D. He will be NPO after midnight. This was discussed with the patient. All of his questions were answered. Further recommendations will follow. Dictated by... Carlos Alberto Burger M.D. MEAGHAN/cecilio TD: 12/09/2016 11:19 JOB #: [id number] Unit #: [id number] #: [id number] Patient: MARIELA VILLASENOR CONSULTATION REPORT Page 1 of 1 X X CONSULTATION REPORT
--- NOTE | ~2016-11-30 | DS ---
Unit #: [id number] #: [id number] Patient: MARIELA LANCE [id number] [address] [place], [place] [address] [id number] I MR#: [id number] NAME: MARIELA LANCE. ROOM: 341 Age: 46 Sex: M Admission Date: 12/01/2016 : 1970 Discharge Date: 12/15/2016 Attending Physician: Christofer Gambino M.D. Primary Care Physician: No Primary Care Physician DISCHARGE SUMMARY ADDENDUM Kindly note there is an interim discharge summary dictated by me on the . This is an addendum to the discharge summary. In the last one week, patient was seen by Dr. Burger, orthopedic surgery. He had a knee aspiration of the left knee. The Gram stain showed (1) a lot of WBCs, but cultures were negative. He also had left knee arthrotomy and underwent I and D. The Gram stain showed WBCs, but cultures were negative. He was started on vancomycin and Rocephin empirically for septic arthritis and the antibiotics are supposed to continue for six weeks. The last day of antibiotics is December. Regarding the ileus, slowly the ileus improved. His NG tube was removed. He started on oral diet. He did have a bowel movement. He is tolerating oral diet well and he is encouraged to continue with oral diet and strongly counseled to quit drinking alcohol. Patient is doing clinically better. We offered him rehab. He wants to go home with home health care. He mentioned that he was on IV antimicrobials in the past for septic arthritis and he can manage at home. I did explain to him about the possible side effects of vancomycin and Rocephin including kidney toxicity, liver injury, and requested him to get a CBC and CMP weekly, at least once a week or twice a week, while he is on antimicrobials through the December and follow up with his primary care. I also did explain to him that in the arm that he has the PICC line he needs to monitor for any swelling for DVT or an infection. PHYSICAL EXAMINATION On the day of the discharge, his physical examination: VITAL SIGNS: Temperature 99, pulse rate 90, respirations 16, and blood pressure 124/76. GENERAL APPEARANCE: Patient is alert and oriented x3. Lying in the bed. No acute distress. HEENT: Normocephalic and atraumatic. No icterus. PERRLA. Extraocular movements intact. NECK: Supple. No JVD. HEART: S1 and S2, regular rate and rhythm. CHEST: Bilateral equal air entry. Clear to auscultation. ABDOMEN: Soft and nontender. Normal bowel sounds present. EXTREMITIES: Left knee with a dressing. He does have a PICC line in the right arm. DISCHARGE MEDICATIONS 1. Vancomycin 1500 mg IV q.12 until the December. 2. Rocephin 2 g IV every day until the December. Unit #: [id number] #: [id number] Patient: MARIELA LANCE 3. Topamax 25 mg twice a day. 4. Flomax 0.4 mg daily. 5. Tessalon Perles. 6. Robitussin syrup p.r.n. for cough [id number]. 7. Bystolic 5 mg p.o. daily. 8. Norvasc 5 mg p.o. daily. 9. Multivitamin 1 capsule p.o. daily. 10. Aspirin 81 mg daily. 11. Diclofenac 50 mg p.o. twice a day p.r.n. for pain. 12. Omeprazole 40 mg p.o. daily. DISCHARGE INSTRUCTIONS 1. Follow up with primary care in 1-2 weeks. 2. I did explain he needs to get a CBC and CMP once a week while he is on antimicrobials and follow up the labs with the primary care. 3. It is okay to remove the PICC line after he is done with the antimicrobials. TOTAL TIME SPENT ON HIS CARE Thirty-five minutes. Dictated by... Marques Bennett/sergio TD: 12/15/2016 11:50 JOB #: [id number] DISCHARGE SUMMARY Page 1 of 1 X X DISCHARGE SUMMARY
--- NOTE | ~2016-11-30 | MR2 ---
[facility] A Service of [facility] & [facility] RADIOLOGY TEXT RESULTS PATIENT: MARIELA LANCE LOCATION: [facility] 341-01 : [birth year] UNIT #: [id number] AGE: [address]: Christofer Gambino MD SEX: M ORDER DR: [id number] [facility] [address] [place], [place] [address] [id number] I MR#: [id number] Acc #: [id number] NAME: MARIELA LANCE. : 1970 SEX: M STUDY DATE/TIME: 12/01/2016 8:27 UNIT: [address] ROOM: 341 STUDY DESCRIPTION: MR Abdomen WWo Cont Attending Physician: Christofer Gambino M.D. Ordering Physician: Pa Hagan M.D. Primary Care Physician: Primary Care Physician No MRI CENTER REPORT This report is preliminary unless electronic signature is present. EXAM MRI abdomen with and without contrast INDICATION Acute pancreatitis. Indeterminate liver lesion on recent CT. Further evaluation. Observation for liver mass. PROCEDURE Multiplanar, multisequence MR imaging of the liver prior to and following 14 mL of MultiHance. COMPARISON CT from 12/01/2016. FINDINGS Redemonstration of acute pancreatitis involving the uncinate process head neck and body. There is significant inflammatory fluid throughout the abdomen and tracking along the retroperitoneal fascial planes. The amount of fluid is increasing from the previous CT. There is no organized fluid collection. There is reactive thickening of the adjacent duodenum. No bile duct dilation. The liver measures 18 cm. There may be mild diffuse hepatic steatosis. No evidence for focal steatosis particularly at the dome of the liver. There is a 1.2 cm cyst in the posterior right hepatic lobe. The spleen has normal signal. There is a 2.6 cm benign cyst in the upper pole of the left kidney. Adrenal glands have normal signal. The bowel loops are nondilated. ABDOMEN WITH CONTRAST: The uncinate process, head, neck and body of the pancreas are hypoenhancing on all sequences. The main portal vein is patent. There is some focal nonocclusive thrombus in the portal vein at [facility] A Service of [facility] & [facility] RADIOLOGY TEXT RESULTS PATIENT: MARIELA LANCE LOCATION: [facility] 341-01 : [birth year] UNIT #: [id number] AGE: [address]: Christofer Gambino MD SEX: M ORDER DR: the level of the confluence as well as in the superior mesenteric vein at the confluence. 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 IMPRESSION 1. Acute pancreatitis. Amount of inflammatory fluid in the abdomen is increasing compared with the recent CT. 2. Findings very suspicious for evolving necrosis of the pancreatic head, uncinate process, neck and body. 3. No organized pseudocyst. 4. Small amount of nonocclusive thrombus in the portal and superior mesenteric veins at the confluence. 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 5. Liver is upper limits of normal in size. There may be mild diffuse hepatic steatosis. No evidence for focal fat deposition at the dome of the liver. There is no enhancing liver mass. Dictated by... Eugenio Mark M.D. THIS IS AN ELECTRONICALLY VERIFIED REPORT Eugenio Mark M.D. at 12/04/2016 7:43 AM OZ/benito TD: 12/01/2016 12:58 JOB #: [id number] MRI CENTER REPORT Page 1 of 1 COPY
--- NOTE | ~2016-11-30 | EKG ---
PATIENT: MARIELA LANCE UNIT #: [id number] Ventricular Rate: 94 BPM Atrial Rate: 94 BPM P-R Interval: 126 ms QRS Duration: 90 ms Q-T Interval: 392 ms QTC Calculation(Bezet): 490 ms P [place]: 68 degrees Calculated R [place]: 0 degrees Calculated T [place]: 42 degrees Diagnosis Line: Normal sinus rhythm Diagnosis Line: Nonspecific ST abnormality Diagnosis Line: Prolonged QT Diagnosis Line: Abnormal ECG Diagnosis Line: No previous ECGs available Diagnosis Line: Confirmed by ADRIA EL MD ([id number]) on 12/03/2016 Diagnosis Line: 4:01:54 PM INTERPRETING MD: NIKKO WEST
--- NOTE | ~2016-11-30 | CO ---
Unit #: [id number] #: [id number] Patient: MARIELA VILLASENOR [id number] [address] [place], [place] [address] [id number] I MR#: [id number] NAME: MARIELA VILLASENOR. ROOM: [facility] Age: 46 Sex: M Admission Date: 12/01/2016 : 1970 Attending Physician: Christofer Gambino M.D. Consultation Date: 12/04/2016 CONSULTATION REPORT CHIEF COMPLAINT Gross hematuria. HISTORY OF PRESENT ILLNESS Mr. Villasenor is a 46-year-old gentleman with history of pancreatitis here with complaints of 1 to 2 days of gross hematuria and dysuria. The patient reports some difficulty initiating the stream. He states there is blood in his urine every time he urinates. It hurts every time he urinates. It has not changed with the antibiotics he is taking. He denies fever or chills. He denies having this problem prior to this admission. He is here with one family member. States he compares to when he was younger and had a venereal disease. PAST MEDICAL HISTORY Pancreatitis, stroke, hypertension, alcohol abuse, left septic knee, GERD. ALLERGIES No known drug allergies. FAMILY HISTORY Noncontributory. MEDICATIONS Please refer to reconciliation sheet. SOCIAL HISTORY Positive for alcohol. He denies smoking. REVIEW OF SYSTEMS Negative for 10 points except for burning with urination, blood in urine, and some abdominal discomfort. PHYSICAL EXAMINATION VITAL SIGNS: He is afebrile. Vital signs stable. CARDIAC: Benign. PULMONARY: Benign. ABDOMEN: Distended. He has some ascites. He has normal external genitalia. Circumcised penis. EXTREMITIES: No clubbing, cyanosis, or edema. : Prostate exam was deferred per his request. NEUROLOGIC: Cranial nerves 2 through 12 intact. HEENT: His eyes show equal ocular response and they are intact. ASSESSMENT Unit #: [id number] #: [id number] Patient: MARIELA VILLASENOR The patient with gross hematuria and dysuria associated with some difficulty urinating. We will obtain a urinalysis, urine culture, and sensitivity. We will start him on some Flomax. His creatinine is 0.7. I reviewed his films and lab results as well as imaging studies. Thank you for the chance to participate in his care. Dictated by... Marques Valencia/rosanne TD: 12/05/2016 05:06 JOB #: [id number] CONSULTATION REPORT Page 1 of 1 X Eyal Holloway MD X CONSULTATION REPORT
--- NOTE | ~2016-11-30 | CR127 ---
[facility] A Service of [facility] RADIOLOGY TEXT RESULTS PATIENT: MARIELA LANCE LOCATION: [facility] 341- : [birth year] UNIT #: [id number] AGE: [address]: Christofer Gambino MD SEX: M ORDER DR: [id number] [address] [place] [id number] [facility]. [place], [place] [address] [id number] I MR#: [id number] Acc #: [id number] NAME: MARIELA LANCE. : 1970 SEX: M STUDY DATE/TIME: 12/12/2016 13:45 UNIT: [address] ROOM: [facility] STUDY DESCRIPTION: CR Foot Complete Min 3 View Rt Attending Physician: Christofer Gambino M.D. Ordering Physician: Carlos Alberto Burger M.D. Primary Care Physician: Primary Care Physician No MEDICAL IMAGING REPORT This report is preliminary unless electronic signature is present EXAM Right foot series, 12/12/2016 HISTORY 46-year-old male hospital inpatient admitted with reported acute pancreatitis. He complains of 2-week history of right mid foot pain and swelling. He states he is scheduled for unspecified foot surgery. No reported acute injury. COMPARISON No comparison studies here. TECHNIQUE Three-view right foot series. FINDINGS No evidence of fracture, dislocation or other acute osseous abnormality. 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 There is also prominent osseous beaking along the dorsal margins of the talonavicular joint. This can be seen in patients with congenital tarsal coalition, although no coalition is directly visualized radiographically. Remainder of the examination is negative. IMPRESSION 1. No acute osseous abnormality. 2. 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 3. Prominent dorsal beaking at the talonavicular joint. Dictated by... Jason Herrera M.D. [facility] A Service of [facility] RADIOLOGY TEXT RESULTS PATIENT: MARIELA LANCE LOCATION: [facility] 341-01 : [birth year] UNIT #: [id number] AGE: [address]: Christofer Gambino MD SEX: M ORDER DR: THIS IS AN ELECTRONICALLY VERIFIED REPORT Jason Herrera M.D. at 12/12/2016 6:48 PM Gladis TD: 12/12/2016 15:10 JOB #: [id number] MEDICAL IMAGING REPORT Page 1 of 1 COPY
--- NOTE | ~2016-11-30 | OR ---
Unit #: [id number] #: [id number] Patient: MARIELA VILLASENOR [id number] [address] [place], [place] [address] [id number] I MR#: [id number] NAME: MARIELA VILLASENOR ROOM: [facility] Date of Procedure: 12/09/2016 Admission Date: 12/01/2016 Surgeon: Carlos Alberto Burger M.D. : 1970 Attending Physician: Christofer Gambino M.D. Primary Care Physician: Primary Care Physician No PROCEDURE OPERATIVE NOTE PREOPERATIVE DIAGNOSIS Left septic knee arthritis. POSTOPERATIVE DIAGNOSIS Left septic knee arthritis. PROCEDURE PERFORMED Left knee joint aspiration. SURGEON Carlos Alberto Burger M.D. TRAVEL REGISTERED NURSE ICU None. ANESTHESIA None. INDICATION FOR PROCEDURE Mr. Villasenor is a 46-year-old male with two-day history of left knee swelling and pain. He also has elevated white blood cell count and fever. He has a history of a left septic knee. Based on these findings, it is felt left knee aspiration was warranted. Verbal consent was obtained from the patient. DETAILS OF THE PROCEDURE 12/09/2016, verbal consent was obtained for left knee arthrocentesis from the patient. At this point, the superolateral aspect of the left knee was sterilely prepped with alcohol. Approximately 3 mL of lidocaine 1% without epinephrine was sterilely injected in the subcutaneous tissue overlying the superolateral aspect of the knee. Next, the knee was sterilely prepped with chlorhexidine. A 19-gauge needle was inserted into the knee joint. Approximately 50 mL of cloudy joint fluid was aspirated. The fluid was placed in a sterile specimen cup and sent to the lab. Band-Aid was placed over the puncture site. The patient tolerated this well. POSTPROCEDURE PLAN 1. The fluid will be sent for STAT Gram-stain, culture, cell count and crystals. 2. He will be n.p.o. after midnight for possible I and D in the morning. 3. Patient agreed with the plan. Unit #: [id number] #: [id number] Patient: MARIELA VILLASENOR 4. No complications encountered during this procedure. Dictated by... Marques Garber/lila TD: 12/09/2016 19:08 JOB #: [id number] PROCEDURE OPERATIVE NOTE Page 1 of 1 X X PROCEDURE OPERATIVE NOTE
--- NOTE | ~2016-11-30 | CO ---
Unit #: [id number] #: [id number] Patient: MARIELA VILLASENOR [id number] [address] [place], [place] [address] [id number] I MR#: [id number] NAME: MARIELA VILLASENOR. ROOM: [facility] Age: 46 Sex: M Admission Date: 12/01/2016 : 1970 Attending Physician: Christofer Gambino M.D. Consultation Date: 12/11/2016 CONSULTATION REPORT JOB NOTE: CC: HIPS PHYSICIAN REASON FOR CONSULTATION 1. Acute pancreatitis. 2. Ileus. Thank very much for asking us to see Mr. Villasenor. HISTORY OF PRESENT ILLNESS He is a 46-year-old black male with history of hypertension, CVA in the past, history of alcohol abuse, who was admitted with abdominal pain, nausea, and vomiting. He was found on CT scan as well as laboratory studies to have severe acute pancreatitis. He was also found to have splenic vein thrombosis. He was admitted and treated with IV fluids, IV antibiotics, and had a nasogastric tube placed. He has had a persistent ileus. He had upper endoscopy performed by Dr. Enriquez and was found to have no varices, but evidence of gastritis. He presents at this time for further evaluation of his acute pancreatitis. He had a CT scan today which showed persistent areas of nonenhancement suggestive of pancreatic necrosis, but no evidence of pancreatic abscess. PAST MEDICAL HISTORY Hypertension; GERD; alcohol abuse; septic left knee, requiring surgery last year. ALLERGIES No known medical allergies. MEDICATIONS Please see med rec sheet. FAMILY HISTORY No significant abnormalities. SOCIAL HISTORY The patient recently stopped smoking. He does not drink alcohol as consistently, but drinks intermittently. REVIEW OF SYSTEMS Negative except for above. PHYSICAL EXAMINATION GENERAL: Well-developed, well-nourished, black male, in no apparent distress. Nasogastric tube is in place with light bilious colored material being evacuated. He has a drain going in his left knee after Unit #: [id number] #: [id number] Patient: MARIELA VILLASENOR being treated surgically for septic knee. Awake, alert, and oriented. VITAL SIGNS: Currently, he is afebrile with a temperature 98.6, pulse 98, respirations 18, blood pressure 121/82. NECK: Supple. No thyromegaly or adenopathy. BACK: No CVA or spinous tenderness. A nasogastric tube was in place and light colored bilious material was being evacuated. ABDOMEN: Soft, moderately distended, but no rebound, peritoneal signs, no rigidity. No masses are found. EXTREMITIES: The patient has a large dressing over his left knee with the drain going into the knee. DIAGNOSTIC STUDIES LABORATORY RESULTS: Reveal the patient to have a CMP that shows a glucose of 223, BUN 7, creatinine 0.7. Sodium is 131, potassium 3.8, total bilirubin today was 1 with an AST of 77, ALT 59, alkaline phosphatase 45. No amylase or lipase has been checked since 12/01/2016. The patient's white count is 21.4 with a hemoglobin of 8.1, hematocrit 24.9, MCV of 102.1, and platelet count of 504,000. IMPRESSION A 46-year-old black male with acute pancreatitis with necrosis as well as ileus. We have recommended adding imipenem for greater antibiotic coverage. In addition, we feel the patient should have an ultrasound performed to see if he has evidence of cholelithiasis and we will recheck his labs especially amylase and lipase. We could recommend continuing TPN and supportive care. It is a difficult situation as he is unable to ambulate well due to his left knee infection. Thank you very much for this consultation. We appreciate it. Dictated by... Adarsh Dubois M.D. [facility]/rosanne TD: 12/12/2016 05:11 JOB #: [id number] CC: [facility] Damian Enriquez M.D. CONSULTATION REPORT Page 1 of 1 X Adarsh Dubois MD X CONSULTATION REPORT
--- NOTE | ~2016-11-30 | FU ---
[facility] Nutrition Therapy DATE: 12/14/16 Patient: MARIELA Springer NATALIO Physician: DAYANA Address: [facility] Room/Bed: [address] [place] [address], Zip: [place] [address] Admit Date: 12/01/16 Date of : [birth year] Height: 5 8 Weight: 169 77 NUTRITION MONITORING/FOLLOW-UP: Reason: TPN follow-up Admitting Dx: 46 y/o male admitted with acute pancreatitis, abdominal pain, N/V Anthropometrics: Ht: 68", admission wt: 75.2 kg, current wt: 77 kg, BMI: 25.2 (overweight; based on admission wt) Labs: Na 132, Glucose 283, POC 305, ALT 43, A1C 6.2 (12/01/16), Triglycerides 221 (12/04/16), Amylase/Lipase WNL, K/Mg/Phos WNL Meds: Therapeutic formula, PPI, Novolog (high SSI) GI: NGT D/C 12/13, last BM 12/13, denies N/V Skin: Reviewed; no change, no edema Assessment: Chart reviewed, events noted. Patient NPO/on clear liquids from 12/08-, then consistent carb diet 12/12, full liquids 12/13. NGT discontinued 12/13 and diet was advanced to low-fat/consistent carb. Ate ~50% breakfast this morning, is trying to "go slow" with increasing oral intake. Says Ensure Clear is "ok," prefers mixed krueger, will add to diet order BID until PO intake is consistently > 50% of meals. Per MD orders today, TPN was decreased to 20 ml/hr, will run 4 more house until bag runs out and then discontinue. Although the patient does NOT have a history of diabetes his A1C lab on 12/01 was high (6.2), and he states "I guess I have it now." It does not appear as though this has been clearly addressed with the patient. RD discussed meanining of high A1C level and the need to control blood glucose when he goes home. Gave verbal consistent carb diet education and modifications for healthier eating, patient not wanting full education at this time. Encouraged him to let nursing know if he would like handouts/further education prior to discharge, and they can contact us; he agreed. See nutrition goals, dx and recs as stated below. Will continue to follow. Dx: Inadequate protein energy intake r/t pancreatitis, ileus AEB NPO, 10-15 lb weight loss - RESOLVED New nutrition dx: 1) Predicted suboptimal energy intake r/t pancreatitis, resolving ileus AEB solid PO diet just started, need for ONS, 10-15 lb weight loss. 2) Altered nutrition related lab values r/t newly diagnosed diabetic AEB A1C 6.1, glucose POC 283-305, need for insulin. [facility] Nutrition Therapy DATE: 12/14/16 Patient: MARIELA LANCE Physician: DAYANA Address: [address] [place] [address] Room/Bed: [address] [place] [address], Zip: [place] [address] Admit Date: 12/01/16 Date of : [birth year] Height: 5 8 Weight: 169 77 Intervention: Ensure Clear mixed krueger BID, diet education once appropriate Monitoring, Evaluation and Goals: 1. TPN to meet > 80% goal volume x 24 hours - MET, NO LONGER RELEVANT 2. Improvement in labs (glucose (NOT MET), triglycerides (UNMEASURED), amylase (WNL), lipase (WNL)) 3. GI function WNL - IN PROGRESS, LAST BM 12/13 4. Maintain weight status - MET Revised nutrition goals: 1. Tolerance of oral diet with intake > 50% of meals and minimal c/o N/V/D. 2. Promote regular BM's. 3. Improvement in labs (glucose < 200 mg/dL). 4. Once appropriate; gradual weight loss 5-10% of body weight. 5. Once appropriate; understanding/implementation of diabetic diet. Monitor: Per protocol, criteria to determine if above goals met Recommendations: 1. Agree with current diet order: low-fat/consistent carb. Encourage oral intake as tolerated. TPN being discontinued today after bag runs out. 2. RD ordered mixed krueger Ensure Clear BID until PO intake is consistent. Once patient is tolerating > 50% of 3 meals per day can discontinue supplements. 3. Optimize insulin regimen to promote adequate blood glucose control. Please address elevated A1C level; likely pancreatitis induced diabetes which would be a new diagnosis for this patient. RD provided verbal consistent carb/healthy eating education, however the patient will require more extensive education with handouts prior to discharge once more appropriate- please consult or call when patient is ready for further education on diabetic/low-fat diet. 4. Encourage weight loss of 5-10% body weight (9-17 lbs) to promote blood sugar control, once oral intake is adequate. Status: Mild-moderate nutrition risk Respectfully, [facility] Nutrition Therapy DATE: 12/14/16 Patient: MARIELA LANCE Physician: DAYANA Address: [address] [place] [address] Room/Bed: [address] [place] [address], Zip: [place] [address] Admit Date: 12/01/16 Date of : [birth year] Height: 5 8 Weight: [address], LD [employer] [facility] cc: client file
--- NOTE | ~2016-11-30 | CR169 ---
[facility] A Service of [facility] RADIOLOGY TEXT RESULTS PATIENT: MARIELA LANCE LOCATION: [facility] : [birth year] UNIT #: [id number] AGE: [address]: Christofer Gambino MD SEX: M ORDER DR: [id number] [facility]. [place], [place] [address] [id number] I MR#: [id number] Acc #: [id number] NAME: MARIELA LANCE. : 1970 SEX: M STUDY DATE/TIME: 12/09/2016 10:39 UNIT: [address] ROOM: [facility] STUDY DESCRIPTION: CR Knee 2 Views Lt Attending Physician: Christofer Gambino M.D. Ordering Physician: Christofer Gambino M.D. Primary Care Physician: No Primary Care Physician MEDICAL IMAGING REPORT This report is preliminary unless electronic signature is present EXAM Left knee, 2 views. INDICATION Left knee pain and swelling. COMPARISON Comparison with 02/16/2016. FINDINGS There is a small left knee joint effusion. There is no fracture or dislocation. There is a tiny air bubble projecting over the suprapatellar region on the lateral view which may be a tiny amount of air within the joint space. Correlate with any recent knee aspiration. There is osteopenia. IMPRESSION There is a small knee joint effusion. There is no fracture or dislocation. There is a tiny air bubble projecting over the suprapatellar region on the lateral view which may represent a tiny amount of air within the knee joint effusion, although, it is not clearly seen on the AP view. Correlate with any recent knee aspiration. Dictated by... Kali Yun M.D. THIS IS AN ELECTRONICALLY VERIFIED REPORT Kali Yun M.D. at 12/10/2016 3:47 PM ARS/jt [facility] A Service of [facility] RADIOLOGY TEXT RESULTS PATIENT: MARIELA LANCE LOCATION: [facility] : [birth year] UNIT #: [id number] AGE: [address]: Christofer Gambino MD SEX: M ORDER DR: TD: 12/09/2016 22:28 JOB #: [id number] MEDICAL IMAGING REPORT Page 1 of 1 COPY
--- NOTE | ~2016-11-30 | CR63 ---
[facility] A Service of [facility] RADIOLOGY TEXT RESULTS PATIENT: MARIELA LANCE LOCATION: [facility] 341-01 : [birth year] UNIT #: [id number] AGE: [address]: Christofer Gambino MD SEX: M ORDER DR: [id number] [facility] [address]. [place], [place] [address] [id number] I MR#: [id number] Acc #: [id number] NAME: MARIELA LANCE : 1970 SEX: M STUDY DATE/TIME: 12/08/2016 1140 UNIT: [address] ROOM: [facility] STUDY DESCRIPTION: CR Chest 2 View Attending Physician: Christofer Gambino M.D. Ordering Physician: Damian Enriuqez M.D. Primary Care Physician: No Primary Care Physician MEDICAL IMAGING REPORT This report is preliminary unless electronic signature is present EXAM Chest 2 views 12/08/2016 1140 hours HISTORY 46-year-old man with 2-week history of shortness of air, history of acute pancreatitis. COMPARISON 09/22/2015 FINDINGS Upright PA and 2 lateral views demonstrate the right PICC line with tip in mid SVC. There is no pneumothorax. The cardiac, mediastinal and hilar contours are normal. The lungs are well expanded and clear and there are no effusions. IMPRESSION 1. Right PICC line tip in the mid SVC. No pneumothorax. 2. The lungs are clear and there are no effusions. Dictated by... Natalie Barroso M.D. THIS IS AN ELECTRONICALLY VERIFIED REPORT Natalie Barroso M.D. at 12/11/2016 9:00 AM Eduard TD: 12/08/2016 15:05 JOB #: [id number] MEDICAL IMAGING REPORT Page 1 of 1 COPY
[~2016-11-30 21:27] MED LIST: ALBUTEROL17 GM INH; BAYER CHEWABLE81 MG PO; BENZONATATE PO; CIPRO PO; COREG3.125 M1 PO; IBUPROFEN800 MG PO; LIBRIUM25 MG PO; MEDROL4 MG/DOSE- PO; NO MEDICATIONS; NORCO1 TAB 10/3 PO; PHENERGAN25 MG PO; PREDNISONE PO; ROSUVASTATIN CAL5 MG PO; VOLTAREN75 MG PO; ZESTRIL10 M1 PO
[2016-11-30 22:39] LABS: BASOPHIL# 0.1 X10e3 (0-0.3); BASOPHIL% 0.3 % (0-2.5); EOSINOPHIL% 0.1 % (0.0-7.0); HEMATOCRIT 37.3 % (38.0-50.0); HEMOGLOBIN 12.2 gm/dL (13.0-16.0); LYMPHOCYTE% 13.2 % (17.0-45.0); MEAN CELL VOLUME 109.3 FL (83-96); MEAN CORPUSCULAR HEMOGLOBIN 35.7 PG (28-34); MEAN CORPUSCULAR HGB CONC 32.6 g/dL (30-36); MEAN PLATELET VOLUME 7.9 FL (6.5-11.5); MONOCYTE# 0.9 X10e3 (0-1.0); MONOCYTE% 4.1 % (3.0-12.0); NEUTROPHIL# 18.6 X10e3 (1.5-7.1); NEUTROPHIL% 82.3 % (40-75); PLATELET COUNT 462 X10e3 (140-420); RED BLOOD COUNT 3.41 X10e (3.90-5.60); RED CELL DISTRIBUTION WIDTH 16.5 % (11.0-15.5); WHITE BLOOD COUNT 22.6 X10e3 (4.0-10.5)
[2016-11-30 22:40] LABS: DIFF IND YES
[2016-11-30 23:23] LABS: ANISOCYTOSIS SL; PLATELET ESTIMATE NORMAL (NORMAL)
[2016-11-30 23:26] LABS: ALBUMIN SERUM 3.5 g/dL (3.5-5.0); BILIRUBIN, DIRECT 0.1 mg/dL (0.0-0.2); BILIRUBIN,INDIRECT 0.4 mg/dL (0.0-0.9); BILIRUBIN,TOTAL 0.5 mg/dL (0.2-2.0); BUN/CREATININE RATIO 7.14; CALCIUM SERUM 8.2 mg/dL (8.4-10.2); CREATININE SERUM 0.7 mg/dL (0.6-1.4); GLOM FILT RATE Estimated 130.3 mL/min (>60); POTASSIUM 3.2 mmol/L (3.5-5.1); PROTEIN TOTAL SERUM 7.4 g/dL (6.0-8.3)
[2016-12-01 02:06] LABS: AMPHETAMINE NEG (NEG); BARBITURATES NEG (NEG); BENZODIAZEPINES NEG (NEG); COCAINE NEG (NEG); MARIJUANA NEG (NEG); OPIATES POS (NEG); TRICYCLIC ANTIDEPRESSANTS NEG (NEG); U METHADONE NEG (NEG)
[2016-12-01] MEDS ORDERED: AMLODIPINE BESYL5 MG PO (04:14)
[2016-12-01] MEDS ORDERED: BENZONATATE200 M1 PO ×2 (04:15→04:22)
[2016-12-01] MEDS ORDERED: ASPIRIN81 M2 PO (04:15)
[2016-12-01] MEDS ORDERED: DICLOFENAC SODI50 MG PO (04:16)
[2016-12-01] MEDS ORDERED: BYSTOLIC5 MG PO ×2 (04:17→04:22)
[2016-12-01] MEDS ORDERED: OMEPRAZOLE40 M1 PO (04:17)
[2016-12-01] MEDS ORDERED: PROMETHAZINE D118 ML PO (04:20)
[2016-12-01] MEDS ORDERED: TOPAMAX25 MG PO (04:21)
[2016-12-01 05:41] LABS: URINE SOURCE CLEAN CATCH
[2016-12-01 05:54] LABS: URINE APPEARANCE CLEAR; URINE BILIRUBIN NEG (NEG); URINE BLOOD NEG (NEG); URINE COLOR YELLOW; URINE GLUCOSE 250 MG/DL (NEG); URINE KETONE NEG (NEG); URINE LEUKOCYTE ESTERASE NEG (NEG); URINE NITRATE NEG (NEG); URINE PROTEIN NEG (NEG); URINE SPECIFIC GRAVITY 1.042 (1.003-1.035); URINE UROBILINOGEN 0.2 MG/DL (NEG)
[2016-12-01 05:59] LABS: CULTURE INDICATED? NO
[2016-12-01 06:01] LABS: BASOPHIL% 0.1 % (0-2.5); HEMATOCRIT 37.6 % (38.0-50.0); HEMOGLOBIN 12.4 gm/dL (13.0-16.0); LYMPHOCYTE# 0.9 X10e3 (1.0-3.5); LYMPHOCYTE% 6.8 % (17.0-45.0); MEAN CELL VOLUME 108.7 FL (83-96); MEAN CORPUSCULAR HEMOGLOBIN 35.9 PG (28-34); MEAN PLATELET VOLUME 7.5 FL (6.5-11.5); MONOCYTE# 0.5 X10e3 (0-1.0); MONOCYTE% 3.6 % (3.0-12.0); NEUTROPHIL# 12.5 X10e3 (1.5-7.1); NEUTROPHIL% 89.5 % (40-75); PLATELET COUNT 303 X10e3 (140-420); RED BLOOD COUNT 3.46 X10e (3.90-5.60)
[2016-12-01 06:16] LABS: DIFF IND YES
[2016-12-01 06:36] LABS: ALBUMIN SERUM 3.5 g/dL (3.5-5.0); BILIRUBIN,TOTAL 0.3 mg/dL (0.2-2.0); BUN/CREATININE RATIO 6.25; CALCIUM SERUM 7.6 mg/dL (8.4-10.2); CREATININE SERUM 0.8 mg/dL (0.6-1.4); GLOM FILT RATE Estimated 123.3 mL/min (>60); MAGNESIUM 1.4 mg/dL (1.6-3.0); POTASSIUM 4.6 mmol/L (3.5-5.1); PROTEIN TOTAL SERUM 7.1 g/dL (6.0-8.3)
[2016-12-01 06:42] LABS: PLATELET ESTIMATE NORMAL (NORMAL)
[2016-12-01 06:43] LABS: ANISOCYTOSIS SL
[2016-12-01] MEDS ORDERED: CLARITIN10 M3 PO (15:03)
[2016-12-02 07:46] LABS: HEMATOCRIT 37.4 % (38.0-50.0); MEAN CELL VOLUME 110.3 FL (83-96); MEAN CORPUSCULAR HEMOGLOBIN 35.3 PG (28-34); MEAN PLATELET VOLUME 8.2 FL (6.5-11.5); RED BLOOD COUNT 3.39 X10e (3.90-5.60); RED CELL DISTRIBUTION WIDTH 17.4 % (11.0-15.5); WHITE BLOOD COUNT 20.1 X10e3 (4.0-10.5)
[2016-12-02 08:16] LABS: ALBUMIN SERUM 2.9 g/dL (3.5-5.0); BILIRUBIN,TOTAL 1.3 mg/dL (0.2-2.0); BUN/CREATININE RATIO 16.25; CALCIUM SERUM 7.5 mg/dL (8.4-10.2); CREATININE SERUM 0.8 mg/dL (0.6-1.4); GLOM FILT RATE Estimated 123.3 mL/min (>60); MAGNESIUM 2.1 mg/dL (1.6-3.0); POTASSIUM 4.4 mmol/L (3.5-5.1); PROTEIN TOTAL SERUM 6.6 g/dL (6.0-8.3)
[2016-12-03 06:29] LABS: HEMATOCRIT 30.8 % (38.0-50.0); HEMOGLOBIN 10.1 gm/dL (13.0-16.0); MEAN CELL VOLUME 108.8 FL (83-96); MEAN CORPUSCULAR HEMOGLOBIN 35.6 PG (28-34); MEAN CORPUSCULAR HGB CONC 32.7 g/dL (30-36); MEAN PLATELET VOLUME 8.5 FL (6.5-11.5); RED BLOOD COUNT 2.83 X10e (3.90-5.60); RED CELL DISTRIBUTION WIDTH 17.5 % (11.0-15.5); WHITE BLOOD COUNT 17.4 X10e3 (4.0-10.5)
[2016-12-03 07:01] LABS: ALBUMIN SERUM 2.8 g/dL (3.5-5.0); BILIRUBIN, DIRECT 1.5 mg/dL (0.0-0.2); BILIRUBIN,TOTAL 2.5 mg/dL (0.2-2.0); BUN/CREATININE RATIO 18.33; CALCIUM SERUM 7.6 mg/dL (8.4-10.2); CREATININE SERUM 0.6 mg/dL (0.6-1.4); GLOM FILT RATE Estimated 138.8 mL/min (>60); POTASSIUM 4.3 mmol/L (3.5-5.1); PROTEIN TOTAL SERUM 6.6 g/dL (6.0-8.3)
[2016-12-03 21:26] LABS: CALCIUM SERUM 7.1 mg/dL (8.4-10.2); CREATININE SERUM 0.6 mg/dL (0.6-1.4); GLOM FILT RATE Estimated 138.8 mL/min (>60); POTASSIUM 3.4 mmol/L (3.5-5.1)
[2016-12-04 06:07] LABS: BASOPHIL% 0.4 % (0-2.5); EOSINOPHIL% 0.3 % (0.0-7.0); HEMATOCRIT 28.8 % (38.0-50.0); HEMOGLOBIN 9.7 gm/dL (13.0-16.0); LYMPHOCYTE# 1.1 X10e3 (1.0-3.5); LYMPHOCYTE% 9.3 % (17.0-45.0); MEAN CELL VOLUME 107.4 FL (83-96); MEAN CORPUSCULAR HGB CONC 33.5 g/dL (30-36); MEAN PLATELET VOLUME 8.4 FL (6.5-11.5); MONOCYTE# 0.5 X10e3 (0-1.0); NEUTROPHIL# 9.8 X10e3 (1.5-7.1); PLATELET COUNT 226 X10e3 (140-420); RED BLOOD COUNT 2.69 X10e (3.90-5.60); WHITE BLOOD COUNT 11.4 X10e3 (4.0-10.5)
[2016-12-04 06:08] LABS: DIFF IND NO
[2016-12-04 06:34] LABS: BUN/CREATININE RATIO 28.57; CALCIUM SERUM 7.4 mg/dL (8.4-10.2); CREATININE SERUM 0.7 mg/dL (0.6-1.4); GLOM FILT RATE Estimated 130.3 mL/min (>60); POTASSIUM 3.9 mmol/L (3.5-5.1)
[2016-12-04 08:46] LABS: INR 1.1; PROTHROMBIN TIME (PATIENT) 11.9 SECONDS (9.6-11.5)
[2016-12-04 14:53] LABS: URINE SOURCE CLEAN CATCH
[2016-12-04 14:57] LABS: URINE APPEARANCE CLOUDY; URINE BLOOD 4+ (NEG); URINE COLOR BROWN; URINE GLUCOSE NORM (NORM); URINE KETONE NEG (NEG); URINE LEUKOCYTE ESTERASE NEG (NEG); URINE NITRATE NEG (NEG); URINE PH 6.5 (5-8); URINE PROTEIN 2+ (NEG); URINE UROBILINOGEN NORM (NORM)
[2016-12-04 15:00] LABS: URINE BILIRUBIN NEG (NEG)
[2016-12-04 15:03] LABS: URBCS1 AUWI INNUM /[HPF] (0-2); UWBCS1 AUWI 0-2 (0-5)
[2016-12-04 15:04] LABS: URINE SQUAMOUS EPITHELIAL CELL FEW /[HPF]
[2016-12-04 20:02] LABS: HEMATOCRIT 25.4 % (38.0-50.0); HEMOGLOBIN 8.6 gm/dL (13.0-16.0); MEAN CELL VOLUME 109.7 FL (83-96); MEAN CORPUSCULAR HGB CONC 33.8 g/dL (30-36); MEAN PLATELET VOLUME 8.3 FL (6.5-11.5); RED BLOOD COUNT 2.31 X10e (3.90-5.60); RED CELL DISTRIBUTION WIDTH 17.2 % (11.0-15.5)
[2016-12-04 20:04] LABS: WHITE BLOOD COUNT 4.7 X10e3 (4.0-10.5)
[2016-12-04 20:18] LABS: ALBUMIN SERUM 2.4 g/dL (3.5-5.0); CALCIUM SERUM 7.4 mg/dL (8.4-10.2); CREATININE SERUM 0.8 mg/dL (0.6-1.4); GLOM FILT RATE Estimated 123.3 mL/min (>60); MAGNESIUM 2.2 mg/dL (1.6-3.0); PHOSPHOROUS 2.7 mg/dL (2.5-4.6); POTASSIUM 3.6 mmol/L (3.5-5.1); PREALBUMIN 12.1 mg/dL (17.0-42.0); PROTEIN TOTAL SERUM 6.6 g/dL (6.0-8.3)
[2016-12-05 05:33] LABS: HEMATOCRIT 23.7 % (38.0-50.0); MEAN CELL VOLUME 108.9 FL (83-96); MEAN CORPUSCULAR HEMOGLOBIN 36.8 PG (28-34); MEAN CORPUSCULAR HGB CONC 33.8 g/dL (30-36); MEAN PLATELET VOLUME 7.8 FL (6.5-11.5); RED BLOOD COUNT 2.18 X10e (3.90-5.60); RED CELL DISTRIBUTION WIDTH 16.7 % (11.0-15.5); WHITE BLOOD COUNT 5.7 X10e3 (4.0-10.5)
[2016-12-05 05:56] LABS: ALBUMIN SERUM 2.3 g/dL (3.5-5.0); BILIRUBIN,TOTAL 2.7 mg/dL (0.2-2.0); BUN/CREATININE RATIO 31.42; CALCIUM SERUM 7.2 mg/dL (8.4-10.2); CREATININE SERUM 0.7 mg/dL (0.6-1.4); GLOM FILT RATE Estimated 130.3 mL/min (>60); POTASSIUM 3.3 mmol/L (3.5-5.1); PROTEIN TOTAL SERUM 6.2 g/dL (6.0-8.3)
[2016-12-06 06:02] LABS: HEMATOCRIT 22.6 % (38.0-50.0); HEMOGLOBIN 7.5 gm/dL (13.0-16.0); MEAN CELL VOLUME 109.1 FL (83-96); MEAN CORPUSCULAR HEMOGLOBIN 35.9 PG (28-34); MEAN CORPUSCULAR HGB CONC 32.9 g/dL (30-36); MEAN PLATELET VOLUME 7.5 FL (6.5-11.5); RED BLOOD COUNT 2.07 X10e (3.90-5.60); RED CELL DISTRIBUTION WIDTH 17.5 % (11.0-15.5); WHITE BLOOD COUNT 7.7 X10e3 (4.0-10.5)
[2016-12-06 06:59] LABS: ALBUMIN SERUM 2.1 g/dL (3.5-5.0); BILIRUBIN,TOTAL 1.9 mg/dL (0.2-2.0); CALCIUM SERUM 7.5 mg/dL (8.4-10.2); CREATININE SERUM 0.5 mg/dL (0.6-1.4); GLOM FILT RATE Estimated 149.6 mL/min (>60); MAGNESIUM 2.1 mg/dL (1.6-3.0); POTASSIUM 3.3 mmol/L (3.5-5.1); PROTEIN TOTAL SERUM 5.6 g/dL (6.0-8.3)
[2016-12-07 05:28] LABS: HEMATOCRIT 23.9 % (38.0-50.0); HEMOGLOBIN 7.8 gm/dL (13.0-16.0); MEAN CELL VOLUME 109.1 FL (83-96); MEAN CORPUSCULAR HEMOGLOBIN 35.6 PG (28-34); MEAN CORPUSCULAR HGB CONC 32.6 g/dL (30-36); MEAN PLATELET VOLUME 7.8 FL (6.5-11.5); RED BLOOD COUNT 2.19 X10e (3.90-5.60); RED CELL DISTRIBUTION WIDTH 17.6 % (11.0-15.5); WHITE BLOOD COUNT 10.8 X10e3 (4.0-10.5)
[2016-12-07 06:01] LABS: ALBUMIN SERUM 2.3 g/dL (3.5-5.0); CALCIUM SERUM 7.7 mg/dL (8.4-10.2); CREATININE SERUM 0.6 mg/dL (0.6-1.4); GLOM FILT RATE Estimated 138.8 mL/min (>60); MAGNESIUM 1.9 mg/dL (1.6-3.0); PHOSPHOROUS 1.7 mg/dL (2.5-4.6); POTASSIUM 3.3 mmol/L (3.5-5.1); PROTEIN TOTAL SERUM 6.3 g/dL (6.0-8.3)
[2016-12-08 06:23] LABS: BASOPHIL% 0.1 % (0-2.5); EOSINOPHIL# 0.1 X10e3 (0-0.7); EOSINOPHIL% 0.8 % (0.0-7.0); HEMATOCRIT 22.3 % (38.0-50.0); HEMOGLOBIN 7.2 gm/dL (13.0-16.0); LYMPHOCYTE# 1.8 X10e3 (1.0-3.5); LYMPHOCYTE% 15.5 % (17.0-45.0); MEAN CORPUSCULAR HEMOGLOBIN 35.1 PG (28-34); MEAN CORPUSCULAR HGB CONC 32.5 g/dL (30-36); MONOCYTE# 1.1 X10e3 (0-1.0); MONOCYTE% 9.4 % (3.0-12.0); NEUTROPHIL# 8.6 X10e3 (1.5-7.1); NEUTROPHIL% 74.2 % (40-75); PLATELET COUNT 315 X10e3 (140-420); RED BLOOD COUNT 2.07 X10e (3.90-5.60); RED CELL DISTRIBUTION WIDTH 17.9 % (11.0-15.5); WHITE BLOOD COUNT 11.6 X10e3 (4.0-10.5)
[2016-12-08 06:25] LABS: DIFF IND YES
[2016-12-08 06:54] LABS: ALBUMIN SERUM 2.2 g/dL (3.5-5.0); BILIRUBIN,TOTAL 1.2 mg/dL (0.2-2.0); CALCIUM SERUM 7.6 mg/dL (8.4-10.2); CREATININE SERUM 0.5 mg/dL (0.6-1.4); GLOM FILT RATE Estimated 149.6 mL/min (>60); PHOSPHOROUS 2.2 mg/dL (2.5-4.6); POTASSIUM 4.2 mmol/L (3.5-5.1)
[2016-12-08 07:36] LABS: ANISOCYTOSIS MOD; NUCLEATED RED BLOOD CELL 1 /100 (0); PLATELET ESTIMATE NORMAL (NORMAL); RBC NORMAL YES
[2016-12-08 07:37] LABS: POIKILOCYTOSIS SL
[2016-12-09 08:07] LABS: HEMATOCRIT 24.8 % (38.0-50.0); HEMOGLOBIN 8.3 gm/dL (13.0-16.0); MEAN CORPUSCULAR HEMOGLOBIN 34.4 PG (28-34); MEAN CORPUSCULAR HGB CONC 33.3 g/dL (30-36); MEAN PLATELET VOLUME 8.7 FL (6.5-11.5); RED BLOOD COUNT 2.41 X10e (3.90-5.60); RED CELL DISTRIBUTION WIDTH 21.4 % (11.0-15.5)
[2016-12-09 08:09] LABS: WHITE BLOOD COUNT 18.8 X10e3 (4.0-10.5)
[2016-12-09 09:07] LABS: ALBUMIN SERUM 2.1 g/dL (3.5-5.0); BILIRUBIN,TOTAL 1.3 mg/dL (0.2-2.0); BUN/CREATININE RATIO 12.85; CALCIUM SERUM 7.7 mg/dL (8.4-10.2); CREATININE SERUM 0.7 mg/dL (0.6-1.4); GLOM FILT RATE Estimated 130.3 mL/min (>60); PHOSPHOROUS 3.1 mg/dL (2.5-4.6); POTASSIUM 4.4 mmol/L (3.5-5.1)
[2016-12-09 11:01] LABS: BF CRYSTAL EXAM NO CRYSTALS SEEN; BODY FLUID APPEARANCE CLOUDY; BODY FLUID SOURCE SYNOVIAL
[2016-12-10 11:35] LABS: HEMATOCRIT 24.3 % (38.0-50.0); HEMOGLOBIN 7.8 gm/dL (13.0-16.0); MEAN CELL VOLUME 103.5 FL (83-96); MEAN CORPUSCULAR HEMOGLOBIN 33.2 PG (28-34); MEAN CORPUSCULAR HGB CONC 32.1 g/dL (30-36); MEAN PLATELET VOLUME 9.1 FL (6.5-11.5); RED BLOOD COUNT 2.35 X10e (3.90-5.60); RED CELL DISTRIBUTION WIDTH 21.2 % (11.0-15.5); WHITE BLOOD COUNT 23.8 X10e3 (4.0-10.5)
[2016-12-10 11:44] LABS: CALCIUM SERUM 7.8 mg/dL (8.4-10.2); CREATININE SERUM 0.6 mg/dL (0.6-1.4); GLOM FILT RATE Estimated 138.8 mL/min (>60); PHOSPHOROUS 3.3 mg/dL (2.5-4.6); POTASSIUM 3.7 mmol/L (3.5-5.1)
[2016-12-11 06:40] LABS: HEMATOCRIT 24.9 % (38.0-50.0); HEMOGLOBIN 8.1 gm/dL (13.0-16.0); MEAN CELL VOLUME 102.1 FL (83-96); MEAN CORPUSCULAR HGB CONC 32.3 g/dL (30-36); RED BLOOD COUNT 2.44 X10e (3.90-5.60); RED CELL DISTRIBUTION WIDTH 21.3 % (11.0-15.5); WHITE BLOOD COUNT 21.4 X10e3 (4.0-10.5)
[2016-12-11 07:18] LABS: ALBUMIN SERUM 2.2 g/dL (3.5-5.0); CALCIUM SERUM 7.9 mg/dL (8.4-10.2); CREATININE SERUM 0.7 mg/dL (0.6-1.4); GLOM FILT RATE Estimated 130.3 mL/min (>60); POTASSIUM 3.8 mmol/L (3.5-5.1)
[2016-12-12 08:47] LABS: HEMOGLOBIN 7.5 gm/dL (13.0-16.0); MEAN CELL VOLUME 102.9 FL (83-96); MEAN CORPUSCULAR HEMOGLOBIN 33.6 PG (28-34); MEAN CORPUSCULAR HGB CONC 32.6 g/dL (30-36); MEAN PLATELET VOLUME 9.1 FL (6.5-11.5); RED BLOOD COUNT 2.24 X10e (3.90-5.60); RED CELL DISTRIBUTION WIDTH 20.8 % (11.0-15.5); WHITE BLOOD COUNT 19.3 X10e3 (4.0-10.5)
[2016-12-12 09:46] LABS: ALBUMIN SERUM 1.9 g/dL (3.5-5.0); BILIRUBIN,TOTAL 0.9 mg/dL (0.2-2.0); CALCIUM SERUM 7.7 mg/dL (8.4-10.2); CREATININE SERUM 0.5 mg/dL (0.6-1.4); GLOM FILT RATE Estimated 149.6 mL/min (>60); MAGNESIUM 1.9 mg/dL (1.6-3.0); PHOSPHOROUS 3.3 mg/dL (2.5-4.6); POTASSIUM 4.1 mmol/L (3.5-5.1); PROTEIN TOTAL SERUM 6.4 g/dL (6.0-8.3)
[2016-12-13 05:58] LABS: BASOPHIL# 0.1 X10e3 (0-0.3); BASOPHIL% 0.3 % (0-2.5); EOSINOPHIL# 0.3 X10e3 (0-0.7); EOSINOPHIL% 1.5 % (0.0-7.0); HEMATOCRIT 23.3 % (38.0-50.0); HEMOGLOBIN 7.4 gm/dL (13.0-16.0); LYMPHOCYTE# 2.1 X10e3 (1.0-3.5); LYMPHOCYTE% 11.2 % (17.0-45.0); MEAN CELL VOLUME 101.9 FL (83-96); MEAN CORPUSCULAR HEMOGLOBIN 32.5 PG (28-34); MEAN CORPUSCULAR HGB CONC 31.9 g/dL (30-36); MEAN PLATELET VOLUME 8.8 FL (6.5-11.5); MONOCYTE# 1.2 X10e3 (0-1.0); MONOCYTE% 6.3 % (3.0-12.0); NEUTROPHIL# 15.4 X10e3 (1.5-7.1); NEUTROPHIL% 80.7 % (40-75); PLATELET COUNT 585 X10e3 (140-420); RED BLOOD COUNT 2.29 X10e (3.90-5.60); RED CELL DISTRIBUTION WIDTH 21.1 % (11.0-15.5)
[2016-12-13 06:01] LABS: DIFF IND YES
[2016-12-13 06:52] LABS: ALBUMIN SERUM 2.1 g/dL (3.5-5.0); BILIRUBIN,TOTAL 0.6 mg/dL (0.2-2.0); BUN/CREATININE RATIO 12.85; CALCIUM SERUM 7.7 mg/dL (8.4-10.2); CREATININE SERUM 0.7 mg/dL (0.6-1.4); GLOM FILT RATE Estimated 130.3 mL/min (>60); MAGNESIUM 1.8 mg/dL (1.6-3.0); PHOSPHOROUS 2.9 mg/dL (2.5-4.6); POTASSIUM 3.9 mmol/L (3.5-5.1); PROTEIN TOTAL SERUM 6.9 g/dL (6.0-8.3)
[2016-12-13 06:58] LABS: ANISOCYTOSIS MOD; PLATELET ESTIMATE INCREASED (NORMAL); RBC NORMAL YES
[2016-12-13 06:59] LABS: OVALOCYTES PRESENT; POIKILOCYTOSIS SL; TEAR DROP CELLS PRESENT
[2016-12-13 07:00] LABS: MICROCYTOSIS SL
[2016-12-14 06:22] LABS: HEMATOCRIT 23.2 % (38.0-50.0); HEMOGLOBIN 7.5 gm/dL (13.0-16.0); MEAN CELL VOLUME 102.6 FL (83-96); MEAN CORPUSCULAR HGB CONC 32.2 g/dL (30-36); RED BLOOD COUNT 2.26 X10e (3.90-5.60); RED CELL DISTRIBUTION WIDTH 21.2 % (11.0-15.5); WHITE BLOOD COUNT 15.3 X10e3 (4.0-10.5)
[2016-12-14 08:13] LABS: BILIRUBIN,TOTAL 0.8 mg/dL (0.2-2.0); BUN/CREATININE RATIO 15.71; CALCIUM SERUM 7.9 mg/dL (8.4-10.2); CREATININE SERUM 0.7 mg/dL (0.6-1.4); GLOM FILT RATE Estimated 130.3 mL/min (>60); MAGNESIUM 1.9 mg/dL (1.6-3.0); POTASSIUM 4.6 mmol/L (3.5-5.1); PROTEIN TOTAL SERUM 6.9 g/dL (6.0-8.3)
[2016-12-15 09:52] LABS: BUN/CREATININE RATIO 13.33; CALCIUM SERUM 7.8 mg/dL (8.4-10.2); CREATININE SERUM 0.6 mg/dL (0.6-1.4); GLOM FILT RATE Estimated 138.8 mL/min (>60); POTASSIUM 4.2 mmol/L (3.5-5.1)
[2016-12-15] MEDS ORDERED: FLOMAX0.4 M1 PO (12:31)
[2016-12-15] MEDS ORDERED: ROBITUSSIN-COU237 ML PO (12:35)
[2016-12-15] MEDS ORDERED: MULTI VITAMIN1 EACH PO (12:37)
[2016-12-15] MEDS ORDERED: ROCEPHIN IV (12:38)
[2016-12-15] MEDS ORDERED: VANCOMYCIN IV (12:39)
== END 2016-12-15 14:04 | disposition home health service (06) | DRG 424 ==
LOC: CED 21:27 → CEDOF 12-01 02:20 → C3A PCU 12-01 02:20 → CEDOF 12-01 07:07 → C3A PCU 12-01 07:29
PROVIDERS: Emergency Medicine; Family Medicine; Internal Medicine; Internal Medicine Cardiovascular Disease; Orthopaedic Surgery; Physician Assistant Medical; Surgery
PROC: 0D9670Z Drainage of Stomach with Drainage Device, Via Natural or Artificial Opening (ICD-10-PCS; principal; 2016-12-01)
PROC: 0D988ZZ Drainage of Small Intestine, Via Natural or Artificial Opening Endoscopic (ICD-10-PCS; 2016-12-04)
PROC: 3E0436Z Introduction of Nutritional Substance into Central Vein, Percutaneous Approach (ICD-10-PCS; 2016-12-04)
PROC: 0D968ZZ Drainage of Stomach, Via Natural or Artificial Opening Endoscopic (ICD-10-PCS; 2016-12-04 14:58)
PROC: 02HV33Z Insertion of Infusion Device into Superior Vena Cava, Percutaneous Approach (ICD-10-PCS; 2016-12-05)
PROC: B518YZA Fluoroscopy of Superior Vena Cava using Other Contrast, Guidance (ICD-10-PCS; 2016-12-05)
PROC: B548ZZA Ultrasonography of Superior Vena Cava, Guidance (ICD-10-PCS; 2016-12-05)
PROC: 0TJB8ZZ Inspection of Bladder, Via Natural or Artificial Opening Endoscopic (ICD-10-PCS; 2016-12-07)
PROC: 30233N1 Transfusion of Nonautologous Red Blood Cells into Peripheral Vein, Percutaneous Approach (ICD-10-PCS; 2016-12-08)
PROC: 0S9D3ZX Drainage of Left Knee Joint, Percutaneous Approach, Diagnostic (ICD-10-PCS; 2016-12-09)
PROC: 0S9D0ZX Drainage of Left Knee Joint, Open Approach, Diagnostic (ICD-10-PCS; 2016-12-10)
DX: K85.21 Alcohol induced acute pancreatitis with uninfected necrosis (principal); E87.1 Hypo-osmolality and hyponatremia; K56.60 Unspecified intestinal obstruction; M00.862 Arthritis due to other bacteria, left knee; D62 Acute posthemorrhagic anemia; K56.7 Ileus, unspecified; K92.2 Gastrointestinal hemorrhage, unspecified; F10.239 Alcohol dependence with withdrawal, unspecified; K22.2 Esophageal obstruction; D73.5 Infarction of spleen; E78.5 Hyperlipidemia, unspecified; Z79.4 Long term (current) use of insulin; Z86.73 Personal history of transient ischemic attack (TIA), and cerebral infarction without residual deficits; K21.9 Gastro-esophageal reflux disease without esophagitis; R31.0 Gross hematuria; E87.6 Hypokalemia; R73.9 Hyperglycemia, unspecified; Z87.891 Personal history of nicotine dependence; D50.9 Iron deficiency anemia, unspecified; K44.9 Diaphragmatic hernia without obstruction or gangrene; N40.0 Benign prostatic hyperplasia without lower urinary tract symptoms; K59.00 Constipation, unspecified; Y90.2 Blood alcohol level of 40-59 mg/100 ml
CPT/HCPCS: 36415; 71020; 73560; 73630; 74020; 74176; 74177; 74183; 76705; 76937; 77001; 80048; 80053; 80076; 80202; 80307; 81003; 82105; 82150; 82947; 83036; 83690; 83735; 83880; 84100; 84132; 84134; 84295; 84443; 84478; 84550; 85025; 85027; 85610; 85652; 85730; 86140; 86850; 86900; 86901; 86923; 87040; 87070; 87075; 87086; 87205; 89051; 89060; 93005; 94640; 94760; 96361; 96374; 96375; 96376; 97110; 97116; 97162; 97164; 97166; 97168; 97530; 97535; 99285; A9577; C1751; C9113; G0480; J0295; J0330; J0696; J1170; J1650; J1815; J1885; J2185; J2250; J2270; J2354; J2405; J2997; J3010; J3370; J3411; J3475; J7042; P9016; Q9967